=== PATIENT | female | born 1940 | race Caucasian/White ===

== ENCOUNTER 2017-11-01 15:03 | Inpatient (IN) | payer MEDICARE ==
[~2017-11-01] VITALS: Ht 162.6 cm; Wt 65.0 kg
[~2017-11-01 15:03] MED LIST: ALEN70TA39 PO; CALTTAB PO; CHOL1CAP6 PO; ENOX30P SQ; METO50TA PO; OCUVTAB PO; SYNT75TA PO; TAB-TAB PO; TIMO0.5S29 EACH EYE; TYLE3 PO
[2017-11-01] MEDS ORDERED: PIPERACIL-TAZO 4.5 GM PREMIX 100 ML IV STA (15:18)
[2017-11-01] MEDS ORDERED: SODIUM CHLOR 0.9% 1000 ML INJ 1,000 ML IV ONE (15:30)
[2017-11-01 15:49] VITALS: BP 135/94; PULSE 121; RESP 20; O2SAT 95
--- NOTE | 2017-11-01 15:50 | PD ---
HPI Chief Complaint: Altered mental status Time Seen by Provider: 15:18 Travel History International Travel<30 days: No Contact w/Intl Traveler<30days: No History of Present Illness HPI 77-year-old female retirement patient with history of dementia, presents to the ER today brought in by EMS because facility states that they think she has a UTI, she had foul-smelling urine yesterday, and today's looking more disoriented, chanting to herself, fevers of 103, and EMS found that she was in A. fib with RVR, gave her Cardizem IV with good response, now heart rate in the 100s. Patient is not able to give much further history. Modifying Factors: None Associated Signs & Symptoms: Fevers, altered mental status, tachycardia dysrhythmia Risk Factors: Dementia, elderly PFSH Past Medical History Arthritis: No Heart Rhythm Problems: No Cancer: No Cardiovascular Problems: Yes High Cholesterol: No Congestive Heart Failure: No Diabetes: No Endocrine: Yes Genitourinary: No Hiatal Hernia: Yes Hypertension: Yes Immune Disorder: No Musculoskeletal: Yes (LEFT HIP FX/B PUBIC RAMI FX 06/01/13 S/P FALL) Psychiatric: No Reproductive: No Sleep Apnea: No Thyroid Disease: Yes Past Surgical History Gynecologic Surgery: Yes (HYSTERECTOMY ) Hysterectomy: Yes Social History Alcohol Use: Yes (3X/WK) Tobacco Use: No Substance Use: No Allergies-Medications (Allergen,Severity, Reaction): Coded Allergies: No Known Allergies (Unverified , 06/01/13) Reported Meds & Prescriptions Reported Meds & Active Scripts Active Reported Ocuvite (Multiple Vitamins W/ Minerals) 1 Tab 1 Tab PO DAILY Metoprolol Tartrate 25 Mg Tab 25 Mg PO BID Levothyroxine (Levothyroxine Sodium) 75 Mcg Tab 75 Mcg PO DAILY Amlodipine (Amlodipine Besylate) 10 Mg Tab 10 Mg PO DAILY Review of Systems ROS Limitations: Altered Mental Status Physical Exam Narrative GENERAL: Well-developed elderly white female patient currently and moderate distress. Awake, alert, disoriented. SKIN: Focused skin assessment warm/dry. HEAD: Atraumatic. Normocephalic. EYES: Pupils equal and round. No scleral icterus. No injection or drainage. ENT: No nasal bleeding or discharge. Mucous membranes pink and moist. NECK: Trachea midline. No JVD. CARDIOVASCULAR: Irregularly irregular. RESPIRATORY: No accessory muscle use. Clear to auscultation. Breath sounds equal bilaterally. GASTROINTESTINAL: Abdomen soft, non-tender, nondistended. Hepatic and splenic margins not palpable. MUSCULOSKELETAL: No obvious deformities. No clubbing. No cyanosis. No edema. NEUROLOGICAL: Awake and alert. No obvious cranial nerve deficits. Motor grossly within normal limits. Normal speech. PSYCHIATRIC: Appropriate mood and affect; insight and judgment normal. Data Data Last Documented VS Vital Signs Date Time Temp Pulse Resp B/P (MAP) Pulse Ox O2 Delivery O2 Flow Rate FiO2 11/01/17 16:42 102.0 11/01/17 16:37 95 Nasal Cannula 2.00 11/01/17 15:49 121 20 135/94 (108) Orders Orders Sepsis Workup Initiated (11/01/17 ) Electrocardiogram (11/01/17 15:18) Complete Blood Count With Diff (11/01/17 15:18) Comprehensive Metabolic Panel (11/01/17 15:18) Lactic Acid Sepsis Protocol (11/01/17 15:18) Magnesium (Mg) (11/01/17 15:18) Ckmb (Isoenzyme) Profile (11/01/17 15:18) Troponin I (11/01/17 15:18) Urinalysis - C+S If Indicated (11/01/17 15:18) Blood Culture (11/01/17 15:18) Chest, Single Ap (11/01/17 15:18) Blood Glucose (11/01/17 15:18) Ecg Monitoring (11/01/17 15:18) Iv Access Insert/Monitor (11/01/17 15:18) Oximetry (11/01/17 15:18) Oxygen Administration (11/01/17 15:18) Piperacil-Tazo 4.5 Gm Premix (Zosyn 4.5 (11/01/17 15:18) Sodium Chlor 0.9% 1000 Ml Inj (Ns 1000 M (11/01/17 15:30) Ct Brain W/O Iv Contrast(Rout) (11/01/17 15:19) Acetaminophen Supp (Tylenol Supp) (11/01/17 16:45) Cath For Specimen (11/01/17 16:44) Urine Culture (11/01/17 16:12) CKMB (11/01/17 16:12) CKMB% (11/01/17 16:12) Admit Order (Ed Use Only) (11/01/17 17:47) Labs Laboratory Tests Test 11/01/17 16:12 White Blood Count 25.6 TH/MM3 Red Blood Count 4.12 MIL/MM3 Hemoglobin 12.0 GM/DL Hematocrit 36.7 % Mean Corpuscular Volume 89.0 FL Mean Corpuscular Hemoglobin 29.1 PG Mean Corpuscular Hemoglobin Concent 32.7 % Red Cell Distribution Width 15.1 % Platelet Count 179 TH/MM3 Mean Platelet Volume 10.3 FL Neutrophils (%) (Auto) 97.4 % Lymphocytes (%) (Auto) 1.0 % Monocytes (%) (Auto) 1.4 % Eosinophils (%) (Auto) 0.0 % Basophils (%) (Auto) 0.2 % Neutrophils # (Auto) 24.9 TH/MM3 Lymphocytes # (Auto) 0.3 TH/MM3 Monocytes # (Auto) 0.3 TH/MM3 Eosinophils # (Auto) 0.0 TH/MM3 Basophils # (Auto) 0.0 TH/MM3 CBC Comment AUTO DIFF Differential Total Cells Counted 100 Neutrophils % (Manual) 74 % Band Neutrophils % 21 % Lymphocytes % 1 % Monocytes % 1 % Neutrophils # (Manual) 25.1 TH/MM3 Metamyelocytes 2 % Myelocytes 1 % Differential Comment FINAL DIFF MANUAL Toxic Vacuolation PRESENT Platelet Estimate NORMAL Platelet Morphology Comment NORMAL Urine Color YELLOW Urine Turbidity HAZY Urine pH 6.0 Urine Specific [place] 1.020 Urine Protein 100 mg/dL Urine Glucose (UA) NEG mg/dL Urine Ketones 10 mg/dL Urine Occult Blood LARGE Urine Nitrite POS Urine Bilirubin NEG Urine Urobilinogen LESS THAN 2.0 MG/DL Urine Leukocyte Esterase LARGE Urine RBC 26 /hpf Urine WBC 90 /hpf Urine Squamous Epithelial Cells 1 /hpf Urine Amorphous Sediment RARE Urine Bacteria MANY /hpf Urine Mucus FEW /lpf Microscopic Urinalysis Comment CATH-CULTURE IND Blood Urea Nitrogen 27 MG/DL Creatinine 1.64 MG/DL Random Glucose 117 MG/DL Total Protein 6.9 GM/DL Albumin 3.5 GM/DL Calcium Level 8.8 MG/DL Magnesium Level 1.4 MG/DL Alkaline Phosphatase 89 U/L Aspartate Amino Transf (AST/SGOT) 40 U/L Alanine Aminotransferase (ALT/SGPT) 21 U/L Total Bilirubin 0.7 MG/DL Sodium Level 143 MEQ/L Potassium Level 3.6 MEQ/L Chloride Level 106 MEQ/L Carbon Dioxide Level 21.4 MEQ/L Anion Gap 16 MEQ/L Estimat Glomerular Filtration Rate 30 ML/MIN Lactic Acid Level 7.1 mmol/L Total Creatine Kinase 313 U/L Creatine Kinase MB 3.9 NG/ML Creatine Kinase MB % 1.2 % Troponin I 0.05 NG/ML MDM Medical Decision Making Medical Screen Exam Complete: Yes Emergency Medical Condition: Yes Medical Record Reviewed: Yes Interpretation(s) Laboratory Tests Test 11/01/17 16:12 White Blood Count 25.6 TH/MM3 (4.0-11.0) Neutrophils (%) (Auto) 97.4 % (16.0-70.0) Lymphocytes (%) (Auto) 1.0 % (9.0-44.0) Neutrophils # (Auto) 24.9 TH/MM3 (1.8-7.7) Lymphocytes # (Auto) 0.3 TH/MM3 (1.0-4.8) Neutrophils % (Manual) 74 % (16-70) Band Neutrophils % 21 % (0-6) Lymphocytes % 1 % (9-44) Neutrophils # (Manual) 25.1 TH/MM3 (1.8-7.7) Metamyelocytes 2 % (0-1) Myelocytes 1 % (0-0) Toxic Vacuolation PRESENT (NONE SEEN) Urine Turbidity HAZY (CLEAR) Urine Protein 100 mg/dL (NEG-TRACE) Urine Ketones 10 mg/dL (NEG) Urine Occult Blood LARGE (NEG) Urine Nitrite POS (NEG) Urine Leukocyte Esterase LARGE (NEG) Urine RBC 26 /hpf (0-3) Urine WBC 90 /hpf (0-5) Urine Bacteria MANY /hpf (NONE) Urine Mucus FEW /lpf (OCC) Blood Urea Nitrogen 27 MG/DL (7-18) Creatinine 1.64 MG/DL (0.50-1.00) Random Glucose 117 MG/DL (74-106) Magnesium Level 1.4 MG/DL (1.5-2.5) Aspartate Amino Transf (AST/SGOT) 40 U/L (15-37) Anion Gap 16 MEQ/L (5-15) Estimat Glomerular Filtration Rate 30 ML/MIN (>89) Lactic Acid Level 7.1 mmol/L (0.4-2.0) Total Creatine Kinase 313 U/L (26-192) Creatine Kinase MB 3.9 NG/ML (0.5-3.6) Last [address] 11/01/17 [id number] Signed Impressions: Service Date/Time: Wednesday, November 01, 2017 17:02 - CONCLUSION: 1. Diffuse cerebral atrophy. 2. Mild periventricular and subcortical white matter small vessel ischemic changes bilaterally. 3. No acute infarct, acute hemorrhage, mass effect or extra-axial fluid collections. Carlos Almonte MD Chest X-Ray 11/01/17 [id number] Signed Impressions: Service Date/Time: Wednesday, November 01, 2017 15:32 - CONCLUSION: Moderate cardiac silhouette enlargement. No other acute cardiopulmonary disease identified. Romulo Beal MD Differential Diagnosis Altered mental status, fever: Sepsis versus urosepsis versus dehydration versus metabolic issues versus intracranial injuries Narrative Course Lab work shows significant leukocytosis and UTI. IV antibiotics were initiated after cultures were drawn. Sepsis workup initiated. CT the brain did not show any signs of acute intracranial processes. Plan would be to admit the patient for further treatment. Case was discussed with Dr. Bravo for admission. Diagnosis Primary Impression: Altered mental status Additional Impressions: Sepsis UTI (urinary tract infection) Admitting Information Admitting Physician Requests: Admit Isabel Levi MD November 01, 2017 15:50
--- NOTE | 2017-11-01 16:07 | RADRPT ---
EXAM DATE/TIME: 11/01/2017 15:32 [facility] COMPARISON: No previous studies available for comparison. INDICATIONS : Fever. MEDICAL HISTORY : None. SURGICAL HISTORY : None. ENCOUNTER: Initial ACUITY: 1 day PAIN SCORE: Non-responsive. LOCATION: Bilateral chest FINDINGS: Single AP view of the chest. Patient is rotated into the SALDIVAR position. The lungs are clear. Moderate cardiac silhouette enlargement. No evidence of pleural effusion or pneumothorax. CONCLUSION: Moderate cardiac silhouette enlargement. No other acute cardiopulmonary disease i dentified. Romulo Beal MD on November 01, 2017 at 16:04 Board Certified Radiologist. This report was verified electronically.
[2017-11-01 16:42] VITALS: TEMP 102
[2017-11-01] MEDS ORDERED: ACETAMINOPHEN 325 MG SUPP RECTAL ONE (16:45)
[2017-11-01 16:46] LABS: AUTOMATED NEUTROPHIL # 24.9 TH/MM3 (1.8-7.7); BASOPHIL % 0.2 % (0.0-2.0); HEMATOCRIT 36.7 % (35.0-46.0); LYMPHOCYTE # 0.3 TH/MM3 (1.0-4.8); MEAN CORPUSCULAR HEMOGLOBIN 29.1 PG (27.0-34.0); MEAN CORPUSCULAR HGB CONC 32.7 % (32.0-36.0); MEAN PLATELET VOLUME 10.3 FL (7.0-11.0); MONO % 1.4 % (0.0-8.0); MONOCYTE # 0.3 TH/MM3 (0-0.9); NEUT % 97.4 % (16.0-70.0); PLATELET COUNT 179 TH/MM3 (150-450); RED BLOOD COUNT 4.12 MIL/MM3 (4.00-5.30); RED CELL DISTRIBUTION WIDTH 15.1 % (11.6-17.2); WHITE BLOOD COUNT 25.6 TH/MM3 (4.0-11.0)
[2017-11-01] MEDS ORDERED: METO25TA3 PO (16:46)
[2017-11-01] MEDS ORDERED: LEVO75TA3 PO (16:46)
[2017-11-01] MEDS ORDERED: AMLO10TA2 PO (16:46)
[2017-11-01] MEDS ORDERED: OCUVTAB PO (16:46)
[2017-11-01 16:52] LABS: AMORPHOUS SEDIMENT, URINE RARE; BACTERIA, URINE MANY /hpf; BILIRUBIN, URINE NEG (NEG); BLOOD, URINE LARGE (NEG); GLUCOSE,URINE NEG (NEG); KETONE, URINE 10 mg/dL (NEG); MUCUS URINE FEW /lpf (OCC); NITRITE,URINE POS (NEG); SQUAMOUS EPITHELIAL CELL URINE 1 /hpf (0-5); URINE COLOR YELLOW (YELLW/STRAW); URINE LEUKOCYTE ESTERASE LARGE (NEG)
[2017-11-01 17:01] LABS: ALBUMIN 3.5 GM/DL (3.4-5.0); AST (GOT) 40 U/L (15-37); BICARBONATE 21.4 MEQ/L (21.0-32.0); BLOOD UREA NITROGEN 27 MG/DL (7-18); CALCIUM 8.8 MG/DL (8.5-10.1); CHLORIDE 106 MEQ/L (98-107); CREATININE 1.64 MG/DL (0.50-1.00); GLOMERULAR FILTRATION RATE 30 ML/MIN (>89); GLUCOSE,RANDOM 117 MG/DL (74-106); MAGNESIUM 1.4 MG/DL (1.5-2.5); SODIUM (NA) 143 MEQ/L (136-145)
[2017-11-01 17:02] LABS: ALT (GPT) 21 U/L (10-53)
[2017-11-01 17:03] LABS: LACTIC ACID SEPSIS PROTOCOL 7.1 mmol/L (0.4-2.0)
[2017-11-01 17:06] LABS: ALKALINE PHOSPHATASE 89 U/L (45-117); TOTAL BILIRUBIN ADULT 0.7 MG/DL (0.2-1.0); TOTAL PROTEIN 6.9 GM/DL (6.4-8.2); TROPONIN I 0.05 NG/ML (0.02-0.05)
--- NOTE | 2017-11-01 17:29 | RADRPT ---
EXAM DATE/TIME: 11/01/2017 17:02 [facility] COMPARISON: CT BRAIN W/O CONTRAST, June 01, 2013, 18:10. INDICATIONS : Altered mental status. RADIATION DOSE: 56.35 CTDIvol (mGy) MEDICAL HISTORY : Cardiovascular disease. Hypertension. SURGICAL HISTORY : Hysterectomy. ENCOUNTER: Initial ACUITY: 1 day PAIN SCALE: 0/10 LOCATION: cranial TECHNIQUE: Multiple contiguous axial images were obtained of the head. Using automated exposure control and adj ustment of the mA and/or kV according to patient size, radiation dose was kept as low as reasonably a chievable to obtain optimal diagnostic quality images. DICOM format image data is available electro nically for review and comparison. FINDINGS: CEREBRUM: Diffuse cerebral atrophy is noted. Mild periventricular and subcortical white matter small vessel isc hemic changes are noted bilaterally. No evidence of midline shift, mass lesion, hemorrhage or acute i nfarction. No extra-axial fluid collections are seen. POSTERIOR FOSSA: The cerebellum and brainstem are intact. The 4th ventricle is midline. The cerebellopontine angle i s unremarkable. EXTRACRANIAL: The visualized portion of the orbits is intact. SKULL: The calvaria is intact. No evidence of skull fracture. CONCLUSION: 1. Diffuse cerebral atrophy. 2. Mild periventricular and subcortical white matter small vessel ischemic changes bilaterally. 3. No acute infarct, acute hemorrhage, mass effect or extra-axial fluid collections. Carlos Almonte MD on November 01, 2017 at 17:25 Board Certified Radiologist. This report was verified electronically.
[2017-11-01 17:31] LABS: BANDS 21 % (0-6); LYMPHOCYTES 1 % (9-44); METAMYELOCYTES 2 % (0-1); MONOCYTES 1 % (0-8); MYELOCYTES 1 % (0-0); NEUTROPHIL # MANUAL DIFF 25.1 TH/MM3 (1.8-7.7); POLYS (SEG NEUTROPHILS) 74 % (16-70)
[2017-11-01 17:32] LABS: TOXIC VACUOLATION PRESENT (NONE SEEN)
[2017-11-01 18:35] VITALS: BP 141/95; PULSE 107; RESP 16; O2SAT 95
--- NOTE | 2017-11-01 19:05 | HHI.HP ---
HPI [facility] Primary Care Physician Unknown Admission Diagnosis Sepsis/UTI/altered mental status Chief Complaint: ams Travel History International Travel<30 Days: No Contact w/Intl Traveler <30 Da: No Traveled to Known Affected Are: No History of Present Illness Pt is a 77 yo with htn, reported mild dementia, from a local senior living for foul smelling urine and more confusion. EMS reported to the staff that she is usually more oriented and active. On arrival our staff noted afib/rvr, alot of old stool near hear vaginal canal and very poor hygiene. she appeared very dry. She was confused and just mumbling . EMS gave iv cardizem per report. ABX in form of zosyn and ivf have been initiated. Rfausto placed and dark brown urine with clumps are noted. She is unable to give further hx. Review of Systems Other confusion. foul urine per NH Past Family Social History Past Medical History per records. mild dementia htn gerd avs hypothyroidism cataracts hx diverticulitis/ osteoporosis. Reported Medications Ocuvite (Multiple Vitamins W/ Minerals) 1 Tab 1 Tab PO DAILY Metoprolol Tartrate 25 Mg Tab 25 Mg PO BID Levothyroxine (Levothyroxine Sodium) 75 Mcg Tab 75 Mcg PO DAILY Amlodipine (Amlodipine Besylate) 10 Mg Tab 10 Mg PO DAILY Allergies: Coded Allergies: No Known Allergies (Unverified , 06/01/13) Family History nc Social History no etoh/tob Physical Exam Vital Signs confused mumbling mouth/lips dry heart irreg/tachy lung cta abd s/nt/bs ext no pitting frausto..brown clumped urine. Vital Signs Date Time Temp Pulse Resp B/P (MAP) Pulse Ox O2 Delivery O2 Flow Rate FiO2 11/01/17 18:35 107 16 141/95 (110) 95 Nasal Cannula 2.00 11/01/17 16:42 102.0 11/01/17 16:37 95 Nasal Cannula 2.00 11/01/17 15:49 121 20 135/94 (108) 95 Laboratory Laboratory Tests Test 11/01/17 16:12 White Blood Count 25.6 Red Blood Count 4.12 Hemoglobin 12.0 Hematocrit 36.7 Mean Corpuscular Volume 89.0 Mean Corpuscular Hemoglobin 29.1 Mean Corpuscular Hemoglobin Concent 32.7 Red Cell Distribution Width 15.1 Platelet Count 179 Mean Platelet Volume 10.3 Neutrophils (%) (Auto) 97.4 Lymphocytes (%) (Auto) 1.0 Monocytes (%) (Auto) 1.4 Eosinophils (%) (Auto) 0.0 Basophils (%) (Auto) 0.2 Neutrophils # (Auto) 24.9 Lymphocytes # (Auto) 0.3 Monocytes # (Auto) 0.3 Eosinophils # (Auto) 0.0 Basophils # (Auto) 0.0 CBC Comment AUTO DIFF Differential Total Cells Counted 100 Neutrophils % (Manual) 74 Band Neutrophils % 21 Lymphocytes % 1 Monocytes % 1 Neutrophils # (Manual) 25.1 Metamyelocytes 2 Myelocytes 1 Differential Comment FINAL DIFF MANUAL Toxic Vacuolation PRESENT Platelet Estimate NORMAL Platelet Morphology Comment NORMAL Urine Color YELLOW Urine Turbidity HAZY Urine pH 6.0 Urine Specific [place] 1.020 Urine Protein 100 Urine Glucose (UA) NEG Urine Ketones 10 Urine Occult Blood LARGE Urine Nitrite POS Urine Bilirubin NEG Urine Urobilinogen LESS THAN 2.0 Urine Leukocyte Esterase LARGE Urine RBC 26 Urine WBC 90 Urine Squamous Epithelial Cells 1 Urine Amorphous Sediment RARE Urine Bacteria MANY Urine Mucus FEW Microscopic Urinalysis Comment CATH-CULTURE IND Blood Urea Nitrogen 27 Creatinine 1.64 Random Glucose 117 Total Protein 6.9 Albumin 3.5 Calcium Level 8.8 Magnesium Level 1.4 Alkaline Phosphatase 89 Aspartate Amino Transf (AST/SGOT) 40 Alanine Aminotransferase (ALT/SGPT) 21 Total Bilirubin 0.7 Sodium Level 143 Potassium Level 3.6 Chloride Level 106 Carbon Dioxide Level 21.4 Anion Gap 16 Estimat Glomerular Filtration Rate 30 Lactic Acid Level 7.1 Total Creatine Kinase 313 Creatine Kinase MB 3.9 Creatine Kinase MB % 1.2 Troponin I 0.05 Date/Time Source Procedure Growth Status 11/01/17 16:12 Blood Peripheral Aerobic Blood Culture Pending Received 11/01/17 16:12 Blood Peripheral Anaerobic Blood Culture Pending Received 11/01/17 16:12 Urine Catheterized Urine Urine Culture Pending Received Result Diagram: 11/01/17 1612 11/01/17 1612 Caprini VTE Risk Assessment Caprini VTE Risk Assessment: Mod/High Risk (score >= 2) Caprini Risk Assessment Model Point Value = 1 Point Value = 2 Point Value = 3 Point Value = 5 Age 41-60 Minor surgery BMI > 25 kg/m2 Swollen legs Varicose veins or History of unexplained or recurrent spontaneous Oral contraceptives or hormone replacement Sepsis (< 1 month) Serious lung disease, including pneumonia (< 1 month) Abnormal pulmonary function Acute myocardial infarction Congestive heart failure (< 1 month) History of inflammatory bowel disease Medical patient at bed rest Age 61-74 Arthroscopic surgery Major open surgery (> 45 min) Laparoscopic surgery (> 45 min) Malignancy Confined to bed (> 72 hours) Immobilizing plaster cast Central venous access Age >= 75 History of VTE Family history of VTE Factor V Leiden Prothrombin [id number] Lupus anticoagulant Anticardiolipin antibodies Elevated serum homocysteine Heparin-induced thrombocytopenia Other congenital or acquired thrombophilia Stroke (< 1 month) Elective arthroplasty Hip, pelvis, or leg fracture Acute spinal cord injury (< 1 month) Prophylaxis Regimen Total Risk Factor Score Risk Level Prophylaxis Regimen 0-1 Low Early ambulation 2 Moderate Order ONE of the following: *Sequential Compression Device (SCD) *Heparin 5000 units SQ BID 3-4 Higher Order ONE of the following medications: *Heparin 5000 units SQ TID *Enoxaparin/Lovenox 40 mg SQ daily (WT < 150 kg, CrCl > 30 mL/min) *Enoxaparin/Lovenox 30 mg SQ daily (WT < 150 kg, CrCl > 10-29 mL/min) *Enoxaparin/Lovenox 30 mg SQ BID (WT < 150 kg, CrCl > 30 mL/min) AND/OR *Sequential Compression Device (SCD) 5 or more Highest Order ONE of the following medications: *Heparin 5000 units SQ TID (Preferred with Epidurals) *Enoxaparin/Lovenox 40 mg SQ daily (WT < 150 kg, CrCl > 30 mL/min) *Enoxaparin/Lovenox 30 mg SQ daily (WT < 150 kg, CrCl > 10-29 mL/min) *Enoxaparin/Lovenox 30 mg SQ BID (WT < 150 kg, CrCl > 30 mL/min) AND *Sequential Compression Device (SCD) Assessment and Plan Problem List: (1) Sepsis ICD Codes: A41.9 - Sepsis, unspecified organism Status: Acute Plan: 1. uti/sepsis 2. afib/rvr 3. jak/dehydration 4. hx mild dementia. currently with delirium from above. 5. hypothyroidism cont ivf cont iv abx. zosyn f/u urine and blood cx telemetry swallow eval. po as tolerated prn iv meds for afib/rvr if no improvement after appropriate abx and ivf resuscitation dvt prophylaxis. clarify with family code status (2) Atrial fibrillation with RVR ICD Codes: I48.91 - Unspecified atrial fibrillation Status: Acute (3) Dehydration ICD Codes: E86.0 - Dehydration Status: Acute (4) JAK (acute kidney injury) ICD Codes: N17.9 - Acute kidney failure, unspecified Status: Acute (5) UTI (urinary tract infection) ICD Codes: N39.0 - Urinary tract infection, site not specified Status: Acute (6) HTN (hypertension) ICD Codes: I10 - Essential (primary) hypertension Status: Chronic (7) Hypothyroid ICD Codes: E03.9 - Hypothyroidism, unspecified Status: Chronic Physician Certification Order for Inpatient Services The services are ordered in accordance with Medicare regulations or non- Medicare payer requirements, as applicable. In the case of services not specified as inpatient-only, they are appropriately provided as inpatient services in accordance with the 2-midnight benchmark. days is the estimated time the patient will need to remain in the hospital, assuming treatment plan goals are met and no additional complications. Israel Bravo MD November 01, 2017 19:05
[2017-11-01 19:08] VITALS: BP 124/69; PULSE 116; RESP 16; O2SAT 98
[2017-11-01] MEDS ORDERED: ENALAPRILAT 1.25 MG/ML VIAL IV PUSH PRN (19:15)
[2017-11-01] MEDS ORDERED: ACETAMINOPHEN 650 MG SUPP RECTAL PRN (19:15)
[2017-11-01] MEDS: SODIUM CHLOR 0.9% 1000 ML INJ 1,000 ML IV SCH (19:42)
[2017-11-01 22:45] VITALS: BP 98/57; PULSE 120; RESP 20; TEMP 98; O2SAT 97
[2017-11-01 22:59] VITALS: PULSE 105
[2017-11-01] MEDS: PIPERACIL-TAZO 3.375 GM PREMIX 50 ML IV SCH (23:16)
[2017-11-02] VITALS (15 sets, daily range): BP systolic 105–159; BP diastolic 69–98; PULSE 94–170; RESP 20–27; TEMP 97.6–99.2; O2SAT 96–100
[2017-11-02] MEDS: PIPERACIL-TAZO 3.375 GM PREMIX 50 ML IV SCH ×3 (06:01→21:11)
[2017-11-02] MEDS: SODIUM CHLOR 0.9% 1000 ML INJ 1,000 ML IV SCH ×3 (07:10→21:12)
--- NOTE | 2017-11-02 09:40 | HHI.PR ---
Subjective Remarks lying in bed eyes open and seems more oriented with some of her sentences making sense. Objective Vitals lying in bed no respiratory distress heart irreg lung cta abd s/nt ext no pitting. Vital Signs Date Time Temp Pulse Resp B/P (MAP) Pulse Ox O2 Delivery O2 Flow Rate FiO2 11/02/17 04:48 97.6 121 20 105/77 (86) 97 11/02/17 04:48 Nasal Cannula 2.00 11/02/17 04:00 106 11/02/17 00:08 94 11/02/17 00:00 99.2 96 20 111/69 (83) 98 11/02/17 00:00 Nasal Cannula 2.00 11/01/17 22:59 105 11/01/17 22:45 98.0 120 20 98/57 (71) 97 11/01/17 22:45 Nasal Cannula 2.00 11/01/17 19:23 119 17 96 Room Air 11/01/17 19:08 116 16 124/69 (87) 98 Nasal Cannula 2.00 11/01/17 18:35 107 16 141/95 (110) 95 Nasal Cannula 2.00 11/01/17 16:42 102.0 11/01/17 16:37 95 Nasal Cannula 2.00 11/01/17 15:49 121 20 135/94 (108) 95 Result Diagram: 11/01/17 1612 11/01/17 1612 A/P Problem List: (1) Sepsis ICD Codes: A41.9 - Sepsis, unspecified organism Status: Acute Plan: 1. uti/sepsis. 11/01 blood cx 10/01 gnr 11/01 urine cx pending. 2. afib/rvr 3. jak/dehydration 4. hx mild dementia. currently with delirium from above. 5. hypothyroidism cont ivf cont iv abx. zosyn f/u urine and blood cx telemetry swallow eval pending. start po if tolerated prn iv meds for afib/rvr if no improvement after appropriate abx and ivf resuscitation dvt prophylaxis. ADDENDUM: PT MOVED TO ICU AFTER HALICAT AND AFIB HR'S UP TO 200 IV LOPRESSOR NOT WORKING. HR DROPS TO 130S THE BACK UP SHE IS SPITTING OUT ORAL [facility] OF IV CARDIZEM AND SO UNABLE TO START THE USUAL PROTOCOL. SPOKE WITH REMEDY DEVELOPER . WILL TRY IV DIGOXIN AND INITIATE AMIO PROTOCOL. I WILL GIVE SCHEDULED LOVENOX TO AVOID THROMBOEMBOLIC EVENTS. SISTER CALLED TO ICU NURSING AND TRYING TO CLARIFY CODE STATUS. WILL HAVE REMEDY DEVELOPER BE AWARE IN CASE SHE DETERIORATES FURTHER. (2) Atrial fibrillation with RVR ICD Codes: I48.91 - Unspecified atrial fibrillation Status: Acute (3) Dehydration ICD Codes: E86.0 - Dehydration Status: Acute (4) JAK (acute kidney injury) ICD Codes: N17.9 - Acute kidney failure, unspecified Status: Acute (5) UTI (urinary tract infection) ICD Codes: N39.0 - Urinary tract infection, site not specified Status: Acute (6) HTN (hypertension) ICD Codes: I10 - Essential (primary) hypertension Status: Chronic (7) Hypothyroid ICD Codes: E03.9 - Hypothyroidism, unspecified Status: Chronic Israel Bravo MD November 02, 2017 09:40
[2017-11-02 10:46] LABS: BASOPHIL # 0.1 TH/MM3 (0-0.2); BASOPHIL % 0.2 % (0.0-2.0); EOSINOPHIL % 0.1 % (0.0-4.0); HEMATOCRIT 36.6 % (35.0-46.0); HEMOGLOBIN 12.1 GM/DL (11.6-15.3); LYMPH % 3.2 % (9.0-44.0); LYMPHOCYTE # 0.8 TH/MM3 (1.0-4.8); MEAN CELL VOLUME 89.4 FL (80.0-100.0); MEAN CORPUSCULAR HEMOGLOBIN 29.4 PG (27.0-34.0); MEAN CORPUSCULAR HGB CONC 32.9 % (32.0-36.0); MEAN PLATELET VOLUME 10.2 FL (7.0-11.0); MONO % 2.8 % (0.0-8.0); MONOCYTE # 0.7 TH/MM3 (0-0.9); NEUT % 93.7 % (16.0-70.0); PLATELET COUNT 115 TH/MM3 (150-450); RED CELL DISTRIBUTION WIDTH 15.5 % (11.6-17.2); WHITE BLOOD COUNT 24.6 TH/MM3 (4.0-11.0)
[2017-11-02 11:01] LABS: BICARBONATE 22.9 MEQ/L (21.0-32.0); CALCIUM 8.2 MG/DL (8.5-10.1); CREATININE 1.14 MG/DL (0.50-1.00)
[2017-11-02] MEDS ORDERED: METOPROLOL TARTRATE 25 MG TAB PO ONE (11:15)
[2017-11-02] MEDS ORDERED: METOPROLOL TARTRATE 5 MG/5 ML VIAL IV PUSH STA (12:41)
[2017-11-02] MEDS ORDERED: METOPROLOL TARTRATE 5 MG/5 ML VIAL IV PUSH PRN (12:45)
--- NOTE | 2017-11-02 13:43 | EKG ---
Date Performed: 11/01/2017 Time Performed: 16:48:01 PTAGE: 77 years EKG: ATRIAL FIBRILLATION WITH RAPID VENTRICULAR RESPONSE WITH ABERRANT CONDUCTION OR VENTRICULAR PREMATURE COMPLEXES BORDERLINE RIGHT AXIS DEVIATION NONSPECIFIC ST & T-WAVE ABNORMALITY ABNORMAL RHY THM ECG PREVIOUS TRACING : 06/02/2013 07.02 Since prior tracing, atrial fibrillation with rapid ventric ular response has replaced Sinus rhythm . DOCTOR: Kurt Chung Interpretating Date/Time 11/02/2017 13:42:04
[2017-11-02] MEDS ORDERED: METOPROLOL TARTRATE 25 MG TAB PO SCH ×2 (14:00→21:00)
[2017-11-02] MEDS ORDERED: DILTIAZEM HCL 30 MG TAB PO STA (14:17)
[2017-11-02] MEDS ORDERED: cefTRIAXone INJ 1,000 MG in SODIUM CHLORIDE 0.9% INJ 100 ML IV ONE (15:00)
[2017-11-02] MEDS ORDERED: CHLORHEXIDINE GLUCONATE 2 % 1 PACK (2 CLOTHS)(extra cloths) TOPICAL PRN (15:45)
[2017-11-02] MEDS: METOPROLOL TARTRATE 5 MG/5 ML VIAL IV PUSH PRN (15:47)
[2017-11-02] MEDS ORDERED: DIGOXIN 0.5 MG/2 ML VIAL IV PUSH ONE (16:00)
[2017-11-02] MEDS ORDERED: AMIODARONE INJ 150 MG in DEXTROSE 5% IN WATER 100ML INJ 97 ML IV ONE ×2 (16:03)
[2017-11-02] MEDS ORDERED: AMIODARONE INJ 450 MG in DEXTROSE 5% IN WATE(EXCEL) INJ 241 ML IV PRN ×2 (16:13)
[2017-11-02] MEDS: AMIODARONE INJ 450 MG in SODIUM CHLOR 0.9% (EXCEL) INJ 241 ML IV PRN ×2 (16:34→22:57)
[2017-11-02] MEDS: MAGNESIUM SULFATE 1 GM PREMIX 100 ML IV SCH ×2 (16:50→17:58)
[2017-11-02] MEDS: ENOXAPARIN SODIUM 80 MG/0.8 ML SYRINGE SQ SCH (16:50)
[2017-11-02] MEDS ORDERED: DILTIAZEM HCL 30 MG TAB PO SCH (18:00)
[2017-11-03] VITALS (16 sets, daily range): BP systolic 133–154; BP diastolic 68–96; PULSE 84–109; RESP 16–25; TEMP 98.4–98.9; O2SAT 96–99
[2017-11-03] MEDS: CHLORHEXIDINE GLUCONATE 2 % 1 PACK (2 CLOTHS)(taper/protocol) TOPICAL SCH (04:00)
[2017-11-03] MEDS: ENOXAPARIN SODIUM 80 MG/0.8 ML SYRINGE SQ SCH ×2 (05:40→16:15)
[2017-11-03] MEDS: PIPERACIL-TAZO 3.375 GM PREMIX 50 ML IV SCH ×3 (05:40→21:59)
[2017-11-03] MEDS: SODIUM CHLOR 0.9% 1000 ML INJ 1,000 ML IV SCH ×3 (07:30→21:59)
[2017-11-03 09:31] LABS: HEMATOCRIT 41.8 % (35.0-46.0); HEMOGLOBIN 13.9 GM/DL (11.6-15.3); MEAN CELL VOLUME 88.1 FL (80.0-100.0); MEAN CORPUSCULAR HEMOGLOBIN 29.2 PG (27.0-34.0); MEAN CORPUSCULAR HGB CONC 33.1 % (32.0-36.0); MEAN PLATELET VOLUME 11.1 FL (7.0-11.0); PLATELET COUNT 127 TH/MM3 (150-450); RED BLOOD COUNT 4.75 MIL/MM3 (4.00-5.30); RED CELL DISTRIBUTION WIDTH 15.4 % (11.6-17.2); WHITE BLOOD COUNT 23.5 TH/MM3 (4.0-11.0)
[2017-11-03 09:37] LABS: BICARBONATE 21.7 MEQ/L (21.0-32.0); CREATININE 0.95 MG/DL (0.50-1.00)
[2017-11-03 10:04] LABS: BANDS 25 % (0-6); LYMPHOCYTES 4 % (9-44); METAMYELOCYTES 1 % (0-1); NEUTROPHIL # MANUAL DIFF 22.6 TH/MM3 (1.8-7.7); POLYS (SEG NEUTROPHILS) 70 % (16-70); TOXIC VACUOLATION PRESENT (NONE SEEN)
--- NOTE | 2017-11-03 10:44 | EKG ---
Date Performed: 11/02/2017 Time Performed: 12:55:32 PTAGE: 77 years EKG: Atrial fibrillation with uncontrolled ventricular response. Anterolateral T wave changes ar e nonspecific Low QRS voltages in limb leads Abnormal ECG Since the PREVIOUS TRACING , no significant change noted PREVIOUS TRACING DOCTOR: Jean Taylor Interpretating Date/Time 11/03/2017 10:41:52
--- NOTE | 2017-11-03 10:44 | EKG ---
Date Performed: 11/02/2017 Time Performed: 16:02:34 PTAGE: 77 years EKG: Atrial fibrillation with rapid ventricular response. ST junctional depression is nonspecifi c Abnormal ECG Since the PREVIOUS TRACING , no significant change noted PREVIOUS TRACIN11/02/2017 12.55 DOCTOR: Jean Taylor Interpretating Date/Time 11/03/2017 10:41:40
[2017-11-03] MEDS: METOPROLOL TARTRATE 5 MG/5 ML VIAL IV PUSH PRN (13:23)
[2017-11-03] MEDS: AMIODARONE INJ 450 MG in SODIUM CHLOR 0.9% (EXCEL) INJ 241 ML IV PRN (13:46)
--- NOTE | 2017-11-03 17:51 | HHI.PR ---
Subjective Remarks No new complaints. Objective Vitals Vital Signs Date Time Temp Pulse Resp B/P (MAP) Pulse Ox O2 Delivery O2 Flow Rate FiO2 11/03/17 16:00 88 11/03/17 16:00 98.8 85 22 139/68 (91) 97 11/03/17 14:00 88 11/03/17 13:46 97 147/83 11/03/17 12:00 98.4 109 22 154/81 (105) 97 11/03/17 12:00 88 11/03/17 10:00 88 11/03/17 08:03 88 11/03/17 08:03 98.4 93 22 141/80 (100) 97 11/03/17 07:48 96 Nasal Cannula 4.00 11/03/17 07:00 99 Nasal Cannula 5.00 11/03/17 06:00 96 11/03/17 04:00 98.9 90 22 133/95 (108) 99 11/03/17 04:00 90 11/03/17 02:00 94 11/03/17 00:00 99 11/03/17 00:00 98.8 99 25 135/85 (102) 96 11/02/17 22:57 109 142/69 11/02/17 22:00 112 11/02/17 20:00 99.0 102 24 139/98 (112) 96 11/02/17 20:00 102 11/02/17 20:00 99.0 102 24 139/98 (112) 96 11/02/17 19:00 99 Nasal Cannula 5.00 11/02/17 18:00 101 11/03/17 11/03/17 11/04/17 14:59 22:59 06:59 Intake Total 1000 ml Balance 1000 ml IV Total 1000 ml Result Diagram: 11/03/17 0840 11/03/17 0840 Imaging Last Impressions Head CT 11/01/17 1519 Signed Impressions: Service Date/Time: Wednesday, November 01, 2017 17:02 - CONCLUSION: 1. Diffuse cerebral atrophy. 2. Mild periventricular and subcortical white matter small vessel ischemic changes bilaterally. 3. No acute infarct, acute hemorrhage, mass effect or extra-axial fluid collections. Carlos Almonte MD Chest X-Ray 11/01/17 1516 Signed Impressions: Service Date/Time: Wednesday, November 01, 2017 15:32 - CONCLUSION: Moderate cardiac silhouette enlargement. No other acute cardiopulmonary disease identified. Romulo Beal MD Objective Remarks GENERAL: This is a well-nourished, well-developed patient, in no apparent distress. CARDIOVASCULAR: Regular rate and rhythm without murmurs, gallops, or rubs. RESPIRATORY: Clear to auscultation. Breath sounds equal bilaterally. No wheezes , rales, or rhonchi. GASTROINTESTINAL: Abdomen soft, non-tender, nondistended. Normal active bowel sounds MUSCULOSKELETAL: Extremities without clubbing, cyanosis, or edema. NEURO: Alert & Oriented x1. Moves all ext x4 A/P Problem List: (1) Sepsis ICD Codes: A41.9 - Sepsis, unspecified organism Status: Acute Plan: - blood culture (10/31) 10/01 bottles E. Coli - IVF - zosyn - poor PO intake - appreciate input from ST - DVT prophylaxis - supportive care (2) UTI (urinary tract infection) ICD Codes: N39.0 - Urinary tract infection, site not specified Status: Acute Plan: - urine Cx (11/02) --> gram negative kaylene - zosyn (3) Atrial fibrillation with RVR ICD Codes: I48.91 - Unspecified atrial fibrillation Status: Chronic Plan: - IV amiodarone - prn IV metoprolol - observe on telemetry - will likely transition to PO metoprolol 11/04/17 (4) JAK (acute kidney injury) ICD Codes: N17.9 - Acute kidney failure, unspecified Status: Acute Plan: - improved from admission - IVFs - repeat labs in AM (5) HTN (hypertension) ICD Codes: I10 - Essential (primary) hypertension Status: Chronic (6) Hypothyroid ICD Codes: E03.9 - Hypothyroidism, unspecified Status: Chronic Problem Qualifiers (1) UTI (urinary tract infection): Qualified Codes: N30.00 - Acute cystitis without hematuria (2) HTN (hypertension): Qualified Codes: I10 - Essential (primary) hypertension (3) Hypothyroid: Qualified Codes: E03.9 - Hypothyroidism, unspecified Sea Dwyer DO November 03, 2017 17:50
[2017-11-03] MEDS: METOPROLOL TARTRATE 25 MG TAB PO SCH (21:59)
[2017-11-04] VITALS (25 sets, daily range): BP systolic 133–158; BP diastolic 44–95; PULSE 81–136; RESP 16–18; TEMP 97.6–98.6; O2SAT 97–99
[2017-11-04] MEDS: CHLORHEXIDINE GLUCONATE 2 % 1 PACK (2 CLOTHS)(taper/protocol) TOPICAL SCH (04:00)
[2017-11-04] MEDS: ENOXAPARIN SODIUM 80 MG/0.8 ML SYRINGE SQ SCH ×2 (04:18→15:23)
[2017-11-04] MEDS: AMIODARONE INJ 450 MG in SODIUM CHLOR 0.9% (EXCEL) INJ 241 ML IV PRN (05:30)
[2017-11-04] MEDS: LEVOTHYROXINE SODIUM 75 MCG TAB PO SCH (05:52)
[2017-11-04] MEDS: PIPERACIL-TAZO 3.375 GM PREMIX 50 ML IV SCH ×3 (05:52→21:57)
[2017-11-04 07:03] LABS: AUTOMATED NEUTROPHIL # 15.6 TH/MM3 (1.8-7.7); BASOPHIL % 0.2 % (0.0-2.0); EOSINOPHIL % 0.1 % (0.0-4.0); HEMATOCRIT 37.2 % (35.0-46.0); HEMOGLOBIN 12.4 GM/DL (11.6-15.3); LYMPH % 4.4 % (9.0-44.0); LYMPHOCYTE # 0.8 TH/MM3 (1.0-4.8); MEAN CELL VOLUME 87.7 FL (80.0-100.0); MEAN CORPUSCULAR HEMOGLOBIN 29.2 PG (27.0-34.0); MEAN CORPUSCULAR HGB CONC 33.2 % (32.0-36.0); MEAN PLATELET VOLUME 10.2 FL (7.0-11.0); MONO % 3.5 % (0.0-8.0); MONOCYTE # 0.6 TH/MM3 (0-0.9); NEUT % 91.8 % (16.0-70.0); PLATELET COUNT 135 TH/MM3 (150-450); RED BLOOD COUNT 4.24 MIL/MM3 (4.00-5.30)
[2017-11-04 07:16] LABS: BICARBONATE 24.8 MEQ/L (21.0-32.0); CREATININE 0.82 MG/DL (0.50-1.00); MAGNESIUM 1.8 MG/DL (1.5-2.5)
[2017-11-04] MEDS: METOPROLOL TARTRATE 25 MG TAB PO SCH ×2 (08:12→20:59)
[2017-11-04] MEDS: POTASSIUM CHLORIDE 20 MEQ CONTROLLED RELEASE TAB PO SCH ×2 (10:10→13:54)
[2017-11-04] MEDS: SODIUM CHLOR 0.9% 1000 ML INJ 1,000 ML IV SCH ×2 (11:00→20:59)
--- NOTE | 2017-11-04 15:23 | PD.CONS ---
Consult Service Palliative Care . Consult Requested By Dr. Dwyer . Primary Care Physician Unknown . Reason for Consultation a. To assist with evaluation and management of symptoms including: Confusion , weakness, decreased appetite. b. To assist medical decision maker(s) with: better understanding of current medical conditions; weighing benefits/burdens of medical treatment options; making medical treatment decisions. . HPI History of Present Illness Mrs. Hightower is a 77-year-old female with past medical history of mild dementia, hypertension, GERD, hypothyroidism, osteoporosis. Patient presented to [facility] emergency department on 11/01/17 from [facility] where she has been a resident for the past 3 years with foul-smelling urine and increased confusion. Upon EMS arrival patient was found in atrial fibrillation with RVR given IV Cardizem. Notes also indicate the patient had very poor hygiene, a lot of old stool near the vaginal canal, skin was dry. Patient was confused and mumbling. She was started on antibiotics and IV fluids. Parker catheter was placed found to have dark brown urine with clumps of sediment. Initial emergency room evaluation revealed: * VS: Temp 102, pulse 121, respiration 20, BP 135/94, oxygen saturation 95% on 2 L nasal cannula * WBC 25.6, hemoglobin 12, hematocrit 36.7, platelets 179, neutrophil 97.4% * Urinalysis positive occult blood, nitrate, leukocyte esterase, RBC and WBC, bacteria and mucus, culture indicated. Later resulted E. coli, multidrug resistant. * BUN 27, creatinine 1.64, glucose 117, calcium 8.8, magnesium 1.4, sodium 143, potassium 3.6, GFR 30 * Total bilirubin 0.7, alkaline phosphatase 89, AST 40, ALT 21 * Total protein 6.9, albumin 3.5 * Lactic acid 7.1 * Total creatine kinase 313, CKMB 3.9, CKMB percent 1.2, troponin 0 0.05 * Blood cultures -later resulted E. coli with multiple drug-resistant * Chest x-ray -moderate cardiac silhouette enlargement, no other acute cardiopulmonary disease identified. * CT head-diffuse cerebral atrophy, mild periventricular and subcortical white matter small vessel ischemic changes bilaterally, no acute infarct, acute hemorrhage, mass-effect or extra-axial fluid collections noted. Patient was admitted with altered mental status, sepsis, UTI. Patient remains afebrile. WBC remains elevated 17. She has had poor oral intake. Speech evaluation recommended pureed diet with thin liquids. Palliative care was consulted to assist with further clarification of medical treatment goals. Met with patient at bedside. She is confused, unable to answer questions appropriately. She does not follow commands for me. She is oriented to person only. She denies pain. She does not appear painful. ACADEMIC SUPPORT COORDINATOR indicates she ate very little, bites for lunch. . Function/Cognitive Trajectory Patient has been a resident of [facility] for the past 3 years. She reportedly walks and feeds herself. Eats small amounts. She is confused, does not know her family, needs assistance with showering and dressing. . Review of Systems Constitutional: COMPLAINS OF: Fatigue, Fever (on day of admission), Change in appetite (decrased), Generalized weakness Endocrine: DENIES: Abnorml menstrual pattern, Heat/cold intolerance, Polydipsia , Polyuria, Polyphagia Eyes: COMPLAINS OF: Blurred vision Respiratory: COMPLAINS OF: Shortness of breath Cardiovascular: COMPLAINS OF: Dyspnea on Exertion Gastrointestinal: COMPLAINS OF: Difficulty Swallowing (on pureed diet), DENIES : Abdominal pain, Black stools, Bloody stools, Constipation, Diarrhea, Nausea, Vomiting, Anorexia, Dyspepsia or heartburn, Excessive gas, Bloating, Vomiting blood Integumentary: DENIES: Abnormal pigmentation, Pruritus, Rash, Nail changes, Breast masses, Breast skin changes, Nipple discharge, Nodules, Tumors, Excessive dryness, Non-healing sores Hematologic/Lymphatics: COMPLAINS OF: Bruising Immunologic/Allergic: DENIES: Eczema, Urticaria Neurologic: COMPLAINS OF: Poor Balance (ambulates with walker prior to admission) Psychiatric: COMPLAINS OF: Confusion (dementia) Past Family Social History Coded Allergies: No Known Allergies (Unverified , 06/01/13) Past Medical History Mild dementia Hypertension GERD Hypothyroidism Hiatal hernia Osteoporosis . Past Surgical History Open reduction, internal fixation of the left hip (06/03/13) Hysterectomy Cardiac catheterization normal coronary arteries, normal left ventricular size and function (2002) . Reported Medications Reported Meds & Active Scripts Active Reported Ocuvite (Multiple Vitamins W/ Minerals) 1 Tab 1 Tab PO DAILY Metoprolol Tartrate 25 Mg Tab 25 Mg PO BID Levothyroxine (Levothyroxine Sodium) 75 Mcg Tab 75 Mcg PO DAILY Amlodipine (Amlodipine Besylate) 10 Mg Tab 10 Mg PO DAILY . Current Medications Medications (Trade) Dose Ordered Sig/Kallie Route Start Time Stop Time Status Last Admin Piperacillin Sod/ Tazobactam Sod 50 ml @ 100 mls/hr Q8H IV 11/01/17 22:00 11/04/17 13:54 (Vasotec Inj) 1.25 mg Q6H PRN IV PUSH 11/01/17 19:15 (Tylenol Supp) 650 mg Q6H PRN RECTAL 11/01/17 19:15 Sodium Chloride 1,000 ml @ 100 mls/hr Q10H IV 11/02/17 11:30 11/04/17 11:00 (Lopressor Inj) 5 mg Q5M PRN IV PUSH 11/02/17 14:30 11/03/17 13:23 ([facility] Nursing Information) Patient in critical care unit? Ass... [id number] .XX 11/02/17 15:45 11/02/17 15:45 (Chlorhexidine 2% Cloth) 3 pack DAILY@04 TOPICAL 11/03/17 04:00 11/07/17 04:01 11/03/17 04:00 (Chlorhexidine 2% Cloth) 3 pack UNSCH PRN TOPICAL 11/02/17 15:45 11/07/17 15:34 (Lovenox Inj) 70 mg Q12H SQ 11/02/17 16:15 11/04/17 04:18 Amiodarone HCl 450 mg/Sodium Chloride 250 ml @ 33.33 mls/ hr Q7H31M PRN IV 11/02/17 16:15 11/04/17 05:30 (Synthroid) 75 mcg DAILY@0600 PO 11/04/17 06:00 11/04/17 05:52 (Lopressor) 25 mg BID PO 11/03/17 21:00 11/04/17 08:12 Family History Parents . Sons alive and well. Substance Use Tobacco: former smoke, none recent. Alcohol: none recent. Prescription med abuse: none. Illicits: none. . Psychosocial History . Has 3 sons, Sergio Bowser (in [place]), Akhil Koch (in [place]) and Jad Bowser ( in [place]). Retired. Has been a resident of [facility] for about 3 years , after her . Has a local sister, Parul Yeboah. . Spiritual/Cultural Factors Yarsanism is not an important part of her life. Family declines cpr instructor support at this time. . Health Care Surrogate(s): DURABLE POWER OF OUTSIDE SALES EXECUTIVE does not include healthcare decision making though nominates her son Sergio Bowser as primary POA, Akhil Ambrocio as first alternate and Jad Bowser as second alternative. Family is searching for designation of healthcare surrogate paperwork that reportedly names the same decision making higher. . Documented care wishes: Living will dated 07/26/14 indicates that if her attending physician indicates she is in a persistent vegetative state or has an end-stage condition defined as an irreversible condition that caused injury, disease or illness which has resulted in progressively severe or permanent deterioration and that the medical probability of treatment would be ineffective that she would want life prolonging measures to be withheld or withdrawn and that she would be provided comfort care. Patient also completed a state of [place] DO NOT RESUSCITATE order 11/16/14 indicating that she directs that CPR be withheld or withdrawn. . Today's verbally stated goals: Patient is not capacitated to make her own healthcare decisions, will not regain capacity given underlying dementia. . Family/friends goals: Desires continued aggressive care short of NO CODE at this time. Open to consideration of hospice if her condition continues to decline. . Ethical and Legal Issues Decision Maker: Patient is not capacitated to make her own healthcare decisions , will not regain capacity given underlying dementia. Has written advanced directives, living will, DPOA (does not include healthcare decisions) and [place] DNR. Son, Sergio Bowser indicates he believes he is the designated healthcare surrogate, is looking for documentation. According to [place] statutes, in the absence of written designation of healthcare surrogate, healthcare proxy decision making would fall to her 3 sons. Physical Exam Vital Signs Date Time Temp Pulse Resp B/P (MAP) Pulse Ox O2 Delivery O2 Flow Rate FiO2 11/04/17 12:00 95 11/04/17 12:00 98.1 90 16 143/44 (77) 97 11/04/17 11:00 96 11/04/17 10:00 90 11/04/17 09:00 84 11/04/17 08:00 98.3 101 16 145/80 (101) 97 11/04/17 08:00 88 11/04/17 07:30 Nasal Cannula 2.00 11/04/17 07:00 96 11/04/17 06:00 102 11/04/17 05:30 90 152/95 11/04/17 05:00 92 11/04/17 04:36 Nasal Cannula 2.00 11/04/17 04:00 89 11/04/17 03:30 98.2 89 16 152/95 (114) 98 11/04/17 03:00 83 11/04/17 02:00 90 11/04/17 01:00 83 11/04/17 00:00 92 11/04/17 00:00 97.6 92 16 139/94 (109) 97 11/03/17 23:00 84 11/03/17 22:00 90 11/03/17 21:00 100 11/03/17 20:00 98 Nasal Cannula 2.00 11/03/17 20:00 98.4 100 16 137/96 (110) 98 11/03/17 20:00 94 11/03/17 19:00 92 11/03/17 18:00 88 11/03/17 16:00 88 11/03/17 16:00 98.8 85 22 139/68 (91) 97 Exam CONSTITUTIONAL/GENERAL: This is an adequately nourished, confused patient, in no apparent distress. TUBES/LINES/DRAINS: Oxygen via nasal cannula, PIV left hand, PIV right forearm, bilateral soft wrist restraints, Parker catheter. SKIN: No jaundice, rashes, or lesions. Ecchymoses on upper extremities. No wounds seen anteriorly. Skin temperature appropriate. Not diaphoretic. HEAD: Atraumatic. Normocephalic. EYES: Pupils equal and round and reactive. ENT: Hearing appears grossly normal. Nose without bleeding or purulent drainage. NECK: Trachea midline. CARDIOVASCULAR: Irregularly irregular. No murmurs. RESPIRATORY/CHEST: Symmetric, unlabored respirations. Clear to auscultation. GASTROINTESTINAL: Abdomen soft, non-tender, nondistended. Bowel sounds present. GENITOURINARY: Without palpable bladder distension. Parker catheter in place. MUSCULOSKELETAL: Extremities without clubbing, cyanosis, or edema. No mottling or clubbing. LYMPHATICS: No palpable cervical or supraclavicular adenopathy. NEUROLOGICAL: Awake and alert. Oriented to self only. PSYCHIATRIC: No obvious anxiety/depression. no apparent hallucinations or other psychotic thought process. . Diagnostic Tests Laboratory Laboratory Tests Test 11/01/17 16:12 11/01/17 19:01 11/02/17 10:20 11/02/17 14:30 White Blood Count 25.6 TH/MM3 (4.0-11.0) 24.6 TH/MM3 (4.0-11.0) Red Blood Count 4.12 MIL/MM3 (4.00-5.30) 4.10 MIL/MM3 (4.00-5.30) Hemoglobin 12.0 GM/DL (11.6-15.3) 12.1 GM/DL (11.6-15.3) Hematocrit 36.7 % (35.0-46.0) 36.6 % (35.0-46.0) Mean Corpuscular Volume 89.0 FL (80.0-100.0) 89.4 FL (80.0-100.0) Mean Corpuscular Hemoglobin 29.1 PG (27.0-34.0) 29.4 PG (27.0-34.0) Mean Corpuscular Hemoglobin Concent 32.7 % (32.0-36.0) 32.9 % (32.0-36.0) Red Cell Distribution Width 15.1 % (11.6-17.2) 15.5 % (11.6-17.2) Platelet Count 179 TH/MM3 (150-450) 115 TH/MM3 (150-450) Mean Platelet Volume 10.3 FL (7.0-11.0) 10.2 FL (7.0-11.0) Neutrophils (%) (Auto) 97.4 % (16.0-70.0) 93.7 % (16.0-70.0) Lymphocytes (%) (Auto) 1.0 % (9.0-44.0) 3.2 % (9.0-44.0) Monocytes (%) (Auto) 1.4 % (0.0-8.0) 2.8 % (0.0-8.0) Eosinophils (%) (Auto) 0.0 % (0.0-4.0) 0.1 % (0.0-4.0) Basophils (%) (Auto) 0.2 % (0.0-2.0) 0.2 % (0.0-2.0) Neutrophils # (Auto) 24.9 TH/MM3 (1.8-7.7) 23.0 TH/MM3 (1.8-7.7) Lymphocytes # (Auto) 0.3 TH/MM3 (1.0-4.8) 0.8 TH/MM3 (1.0-4.8) Monocytes # (Auto) 0.3 TH/MM3 (0-0.9) 0.7 TH/MM3 (0-0.9) Eosinophils # (Auto) 0.0 TH/MM3 (0-0.4) 0.0 TH/MM3 (0-0.4) Basophils # (Auto) 0.0 TH/MM3 (0-0.2) 0.1 TH/MM3 (0-0.2) CBC Comment AUTO DIFF DIFF FINAL Differential Total Cells Counted 100 Neutrophils % (Manual) 74 % (16-70) Band Neutrophils % 21 % (0-6) Lymphocytes % 1 % (9-44) Monocytes % 1 % (0-8) Neutrophils # (Manual) 25.1 TH/MM3 (1.8-7.7) Metamyelocytes 2 % (0-1) Myelocytes 1 % (0-0) Differential Comment FINAL DIFF MANUAL Toxic Vacuolation PRESENT (NONE SEEN) Platelet Estimate NORMAL (NORMAL) Platelet Morphology Comment NORMAL (NORMAL) Urine Color YELLOW (YELLW/STRAW) Urine Turbidity HAZY (CLEAR) Urine pH 6.0 (5.0-8.5) Urine Specific [place] 1.020 (1.002-1.035) Urine Protein 100 mg/dL (NEG-TRACE) Urine Glucose (UA) NEG mg/dL (NEG) Urine Ketones 10 mg/dL (NEG) Urine Occult Blood LARGE (NEG) Urine Nitrite POS (NEG) Urine Bilirubin NEG (NEG) Urine Urobilinogen LESS THAN 2.0 MG/DL (LESS Urine Leukocyte Esterase LARGE (NEG) Urine RBC 26 /hpf (0-3) Urine WBC 90 /hpf (0-5) Urine Squamous Epithelial Cells 1 /hpf (0-5) Urine Amorphous Sediment RARE Urine Bacteria MANY /hpf (NONE) Urine Mucus FEW /lpf (OCC) Microscopic Urinalysis Comment CATH-CULTURE IND Blood Urea Nitrogen 27 MG/DL (7-18) 30 MG/DL (7-18) Creatinine 1.64 MG/DL (0.50-1.00) 1.14 MG/DL (0.50-1.00) Random Glucose 117 MG/DL (74-106) 96 MG/DL (74-106) Total Protein 6.9 GM/DL (6.4-8.2) Albumin 3.5 GM/DL (3.4-5.0) Calcium Level 8.8 MG/DL (8.5-10.1) 8.2 MG/DL (8.5-10.1) Magnesium Level 1.4 MG/DL (1.5-2.5) Alkaline Phosphatase 89 U/L (45-117) Aspartate Amino Transf (AST/SGOT) 40 U/L (15-37) Alanine Aminotransferase (ALT/SGPT) 21 U/L (10-53) Total Bilirubin 0.7 MG/DL (0.2-1.0) Sodium Level 143 MEQ/L (136-145) 145 MEQ/L (136-145) Potassium Level 3.6 MEQ/L (3.5-5.1) 3.6 MEQ/L (3.5-5.1) Chloride Level 106 MEQ/L (98-107) 110 MEQ/L (98-107) Carbon Dioxide Level 21.4 MEQ/L (21.0-32.0) 22.9 MEQ/L (21.0-32.0) Anion Gap 16 MEQ/L (5-15) 12 MEQ/L (5-15) Estimat Glomerular Filtration Rate 30 ML/MIN (>89) 46 ML/MIN (>89) Lactic Acid Level 7.1 mmol/L (0.4-2.0) 6.7 mmol/L (0.4-2.0) Total Creatine Kinase 313 U/L (26-192) Creatine Kinase MB 3.9 NG/ML (0.5-3.6) Creatine Kinase MB % 1.2 % (0.0-4.0) Troponin I 0.05 NG/ML (0.02-0.05) Nasal Screen MRSA (PCR) MRSA NOT DETECTED (NOT Test 11/03/17 08:40 11/04/17 06:09 White Blood Count 23.5 TH/MM3 (4.0-11.0) 17.0 TH/MM3 (4.0-11.0) Red Blood Count 4.75 MIL/MM3 (4.00-5.30) 4.24 MIL/MM3 (4.00-5.30) Hemoglobin 13.9 GM/DL (11.6-15.3) 12.4 GM/DL (11.6-15.3) Hematocrit 41.8 % (35.0-46.0) 37.2 % (35.0-46.0) Mean Corpuscular Volume 88.1 FL (80.0-100.0) 87.7 FL (80.0-100.0) Mean Corpuscular Hemoglobin 29.2 PG (27.0-34.0) 29.2 PG (27.0-34.0) Mean Corpuscular Hemoglobin Concent 33.1 % (32.0-36.0) 33.2 % (32.0-36.0) Red Cell Distribution Width 15.4 % (11.6-17.2) 15.0 % (11.6-17.2) Platelet Count 127 TH/MM3 (150-450) 135 TH/MM3 (150-450) Mean Platelet Volume 11.1 FL (7.0-11.0) 10.2 FL (7.0-11.0) CBC Comment AUTO DIFF DIFF FINAL Differential Total Cells Counted 100 Neutrophils % (Manual) 70 % (16-70) Band Neutrophils % 25 % (0-6) Lymphocytes % 4 % (9-44) Neutrophils # (Manual) 22.6 TH/MM3 (1.8-7.7) Metamyelocytes 1 % (0-1) Differential Comment FINAL DIFF MANUAL Toxic Vacuolation PRESENT (NONE SEEN) Platelet Estimate LOW (NORMAL) Platelet Morphology Comment NORMAL (NORMAL) Blood Urea Nitrogen 20 MG/DL (7-18) 17 MG/DL (7-18) Creatinine 0.95 MG/DL (0.50-1.00) 0.82 MG/DL (0.50-1.00) Random Glucose 110 MG/DL (74-106) 98 MG/DL (74-106) Calcium Level 8.0 MG/DL (8.5-10.1) 8.0 MG/DL (8.5-10.1) Sodium Level 141 MEQ/L (136-145) 142 MEQ/L (136-145) Potassium Level 3.5 MEQ/L (3.5-5.1) 2.8 MEQ/L (3.5-5.1) Chloride Level 108 MEQ/L (98-107) 107 MEQ/L (98-107) Carbon Dioxide Level 21.7 MEQ/L (21.0-32.0) 24.8 MEQ/L (21.0-32.0) Anion Gap 11 MEQ/L (5-15) 10 MEQ/L (5-15) Estimat Glomerular Filtration Rate 57 ML/MIN (>89) 67 ML/MIN (>89) Neutrophils (%) (Auto) 91.8 % (16.0-70.0) Lymphocytes (%) (Auto) 4.4 % (9.0-44.0) Monocytes (%) (Auto) 3.5 % (0.0-8.0) Eosinophils (%) (Auto) 0.1 % (0.0-4.0) Basophils (%) (Auto) 0.2 % (0.0-2.0) Neutrophils # (Auto) 15.6 TH/MM3 (1.8-7.7) Lymphocytes # (Auto) 0.8 TH/MM3 (1.0-4.8) Monocytes # (Auto) 0.6 TH/MM3 (0-0.9) Eosinophils # (Auto) 0.0 TH/MM3 (0-0.4) Basophils # (Auto) 0.0 TH/MM3 (0-0.2) Magnesium Level 1.8 MG/DL (1.5-2.5) Result Diagram: 11/04/17 0609 11/04/17 0609 Microbiology Microbiology Date/Time Source Procedure Growth Status 11/01/17 16:12 Blood Peripheral Aerobic Blood Culture - Final Escherichia Coli Complete 11/01/17 16:12 Anaerobic Blood Culture - Final Escherichia Coli Complete 11/01/17 16:07 Blood Peripheral Aerobic Blood Culture - Final Escherichia Coli Complete 11/01/17 16:07 Anaerobic Blood Culture - Final Escherichia Coli Complete 11/01/17 16:12 Urine Catheterized Urine Urine Culture - Final Escherichia Coli Complete Imaging Last Impressions Head CT 11/01/17 5641 Signed Impressions: Service Date/Time: Wednesday, November 01, 2017 17:02 - CONCLUSION: 1. Diffuse cerebral atrophy. 2. Mild periventricular and subcortical white matter small vessel ischemic changes bilaterally. 3. No acute infarct, acute hemorrhage, mass effect or extra-axial fluid collections. Carlos Almonte MD Chest X-Ray 11/01/17 1518 Signed Impressions: Service Date/Time: Wednesday, November 01, 2017 15:32 - CONCLUSION: Moderate cardiac silhouette enlargement. No other acute cardiopulmonary disease identified. Romulo Beal MD Patient/Family Conference Present at Family Conference: Spoke with sonSergio via telephone. Family Conference Time (mins): 30 Family Conference Location: Telephone Issues Discussed: * Palliative care role, purpose, approach * Additional medical, psychosocial, and spiritual history * Patients general health, functional status, and cognitive changes in the months leading up to the current hospitalization * Patient/family understanding of the current medical problems * Patient/family understanding of prognosis * Patients goals of care as best understood from advance directives and/or conversations and/or values * Current medical treatment options and benefits/burdens of those options * Likely scenarios comparing ongoing aggressive care with a transition to comfort measures only * Questions answered to the best of my ability * Palliative care contact information provided Goals remain aggressive short of no CODE at this time. Open to hospice in the future should her condition worsen. Assessment and Plan Disease Oriented Problem List: (1) Atrial fibrillation with RVR (2) JAK (acute kidney injury) (3) Hypothyroid (4) HTN (hypertension) (5) Altered mental status (6) UTI (urinary tract infection) (7) Sepsis (8) Dehydration Symptom Scale: (1) Decreased appetite 0-10 Scale: Unable to quantify (2) Weakness 0-10 Scale: Unable to quantify (3) Altered mental status 0-10 Scale: Unable to quantify Pertinent Non-Medical Issues Psychosocial: . Has 3 sons that live out of state. Has 1 sister who lives local. Spiritual:Yarsanism is not an important part of her life. Family declines cpr instructor support at this time. Legal: Has written advanced directives, living will, DPOA (does not include healthcare decisions) and [place] DNR. SonSergio indicates he believes he is the designated healthcare surrogate, is looking for documentation. According to [place] statutes, in the absence of written designation of healthcare surrogate, healthcare proxy decision making would fall to her 3 sons. Ethical issues impacting care: No known concerns at this time. . Important Contacts * Sergio Hightower son/reported HCS: [phone] or [phone] * Jad Hightower, son: [phone] * Beau Hightower, spouse: * Tonya Warren, sister: [phone] . Prognosis Ms. Hightower is a 77-year-old female with progressive dementia, admitted with UTI/ sepsis. Decreased appetite now on pured diet and thin liquids. Remains high risk for further decline, aspiration, repeat infection etc. Hospice appropriate if goals are comfort oriented. . Code Status: No Code Plan * Decision Maker: Patient is not capacitated to make her own healthcare decisions, will not regain capacity given underlying dementia. . 3 sons. Has written advanced directives, living will, DPOA (does not include healthcare decisions) and [place] DNR. SonSergio indicates he believes he is the designated healthcare surrogate, is looking for documentation. According to [place] statutes, in the absence of written designation of healthcare surrogate , healthcare proxy decision making would fall to her 3 sons. * NO CODE -[place] DNR on chart * Palliative care spoke with son, Sergio Bowser reported HCS via telephone. He is looking for documentation of designation of healthcare surrogate as power of state attorney paperwork does not include healthcare decisions. He indicates that patient indeed elected NO CODE as per written [place] DNR obtained from [facility]. Son is concerned that patient may not be able to return to [facility] if her baseline condition deteriorates further. Considering hospice services. Agreed for follow-up conversation on 11/05/17 for medical update. * SYMPTOMS: Pain: Denies pain. No obvious signs of pain. Weakness: Secondary to advanced age, infection, debility. Continue PT. decreased appetite: Secondary to increased confusion, underlying likely progressive dementia, infection. Swallow evaluation recommended pured diet and thin liquids. Does not appear family would want feeding tube based on patient written advanced directives. May consider transition to comfort. * Palliative care number provided. * Palliative care will continue to follow throughout hospital course to assist with symptom management and clarification of goals as needed. . Thank you for the opportunity to participate in the care of Ms. Hightower. Attestation To help prompt me to consider important information that might be impacting today's encounter and assessment, information from prior notes written by myself or my colleagues may have been "brought forward" into today's note. My signature on this note, however, is an attestation that I personally performed the exam, history, and/or decision-making noted today, and, unless otherwise indicated, the interactions with patient, family, and staff as well as the review of records all occurred today. I also attest that the listed assessment and stated plan reflect my best clinical judgment today based on the combination of historical information, prior notes, and today's exam/ interactions. When time spent is documented, it refers only to time spent today by the signer, or if indicated, combined time spent today by collaborating physician/nurse practitioner. Yessica Marino November 04, 2017 15:23
--- NOTE | 2017-11-04 17:41 | HHI.PR ---
Subjective Remarks No new complaints. Pt is tolerating PO intake. Per nursing, pt consume 50% of dinner. No n/v/d. Blood tinged urine draining from frausto. Objective Vitals Vital Signs Date Time Temp Pulse Resp B/P (MAP) Pulse Ox O2 Delivery O2 Flow Rate FiO2 11/04/17 16:00 98.6 90 18 133/84 (100) 97 11/04/17 16:00 90 11/04/17 15:00 92 11/04/17 14:00 100 11/04/17 13:00 98 11/04/17 12:00 95 11/04/17 12:00 98.1 90 16 143/44 (77) 97 11/04/17 11:00 96 11/04/17 10:00 90 11/04/17 09:00 84 11/04/17 08:00 98.3 101 16 145/80 (101) 97 11/04/17 08:00 88 11/04/17 07:30 Nasal Cannula 2.00 11/04/17 07:00 96 11/04/17 06:00 102 11/04/17 05:30 90 152/95 11/04/17 05:00 92 11/04/17 04:36 Nasal Cannula 2.00 11/04/17 04:00 89 11/04/17 03:30 98.2 89 16 152/95 (114) 98 11/04/17 03:00 83 11/04/17 02:00 90 11/04/17 01:00 83 11/04/17 00:00 92 11/04/17 00:00 97.6 92 16 139/94 (109) 97 11/03/17 23:00 84 11/03/17 22:00 90 11/03/17 21:00 100 11/03/17 20:00 98 Nasal Cannula 2.00 11/03/17 20:00 98.4 100 16 137/96 (110) 98 11/03/17 20:00 94 11/03/17 19:00 92 11/03/17 18:00 88 11/04/17 11/04/17 11/05/17 15:00 23:00 07:00 Intake Total 1410 ml Output Total 1000 ml Balance 410 ml Intake Oral 240 ml IV Total 1170 ml Output Urine Total 1000 ml # Bowel Movements 2 Result Diagram: 11/04/17 0609 11/04/17 0609 Imaging Last Impressions Head CT 11/01/17 1519 Signed Impressions: Service Date/Time: Wednesday, November 01, 2017 17:02 - CONCLUSION: 1. Diffuse cerebral atrophy. 2. Mild periventricular and subcortical white matter small vessel ischemic changes bilaterally. 3. No acute infarct, acute hemorrhage, mass effect or extra-axial fluid collections. Carlos Almonte MD Chest X-Ray 11/01/17 1518 Signed Impressions: Service Date/Time: Wednesday, November 01, 2017 15:32 - CONCLUSION: Moderate cardiac silhouette enlargement. No other acute cardiopulmonary disease identified. Romulo Beal MD Objective Remarks GENERAL: This is a well-nourished, well-developed patient, in no apparent distress. CARDIOVASCULAR: Regular rate and rhythm without murmurs, gallops, or rubs. RESPIRATORY: Clear to auscultation. Breath sounds equal bilaterally. No wheezes , rales, or rhonchi. GASTROINTESTINAL: Abdomen soft, non-tender, nondistended. Normal active bowel sounds MUSCULOSKELETAL: Extremities without clubbing, cyanosis, or edema. NEURO: Alert & Oriented x1, BARBA A/P Problem List: (1) Sepsis ICD Codes: A41.9 - Sepsis, unspecified organism Status: Acute Plan: - comgmt with Palliative Medicine - blood culture (10/31) 10/01 bottles E. Coli - IVF - zosyn - poor PO intake - PT/ST - DVT prophylaxis - supportive care - obtain repeat blood cultures - repeat CBC/BMP/Mag (2) UTI (urinary tract infection) ICD Codes: N39.0 - Urinary tract infection, site not specified Status: Acute Plan: - urine Cx (11/02) --> E. Coli - zosyn - blood tinged urine - obtain US of kidney, bladder, ureters (3) Atrial fibrillation with RVR ICD Codes: I48.91 - Unspecified atrial fibrillation Status: Chronic Plan: - pt resumed on PO metoprolol - HR controlled - stop IV amiodarone - prn IV metoprolol - observe on telemetry (4) JAK (acute kidney injury) ICD Codes: N17.9 - Acute kidney failure, unspecified Status: Acute Plan: - improved from admission - IVFs - repeat labs in AM (5) HTN (hypertension) ICD Codes: I10 - Essential (primary) hypertension Status: Chronic (6) Hypothyroid ICD Codes: E03.9 - Hypothyroidism, unspecified Status: Chronic Problem Qualifiers (1) UTI (urinary tract infection): Qualified Codes: N30.00 - Acute cystitis without hematuria (2) HTN (hypertension): Qualified Codes: I10 - Essential (primary) hypertension (3) Hypothyroid: Qualified Codes: E03.9 - Hypothyroidism, unspecified Sea Dwyer DO November 04, 2017 17:41
[2017-11-05] VITALS (27 sets, daily range): BP systolic 141–155; BP diastolic 88–98; PULSE 89–130; RESP 16–18; TEMP 97.5–99.4; O2SAT 94–98
[2017-11-05] MEDS: CHLORHEXIDINE GLUCONATE 2 % 1 PACK (2 CLOTHS)(taper/protocol) TOPICAL SCH (04:00)
[2017-11-05] MEDS: ENOXAPARIN SODIUM 80 MG/0.8 ML SYRINGE SQ SCH ×2 (04:15→18:10)
[2017-11-05] MEDS: LEVOTHYROXINE SODIUM 75 MCG TAB PO SCH (05:54)
[2017-11-05] MEDS: PIPERACIL-TAZO 3.375 GM PREMIX 50 ML IV SCH ×3 (05:54→22:07)
[2017-11-05 08:49] LABS: AUTOMATED NEUTROPHIL # 10.4 TH/MM3 (1.8-7.7); BASOPHIL % 0.4 % (0.0-2.0); EOSINOPHIL % 0.2 % (0.0-4.0); HEMATOCRIT 39.3 % (35.0-46.0); LYMPH % 8.2 % (9.0-44.0); MEAN CELL VOLUME 87.4 FL (80.0-100.0); MEAN CORPUSCULAR HGB CONC 33.2 % (32.0-36.0); MEAN PLATELET VOLUME 9.4 FL (7.0-11.0); MONO % 6.6 % (0.0-8.0); MONOCYTE # 0.8 TH/MM3 (0-0.9); NEUT % 84.6 % (16.0-70.0); PLATELET COUNT 146 TH/MM3 (150-450); WHITE BLOOD COUNT 12.3 TH/MM3 (4.0-11.0)
[2017-11-05] MEDS: METOPROLOL TARTRATE 25 MG TAB PO SCH ×2 (08:57→22:06)
[2017-11-05 09:27] LABS: CALCIUM 8.5 MG/DL (8.5-10.1); CREATININE 0.59 MG/DL (0.50-1.00); MAGNESIUM 1.6 MG/DL (1.5-2.5)
[2017-11-05] MEDS: SODIUM CHLOR 0.9% 1000 ML INJ 1,000 ML IV SCH ×2 (09:30→22:07)
[2017-11-05 09:37] LABS: ACANTHOCYTES OCC (NORMAL)
[2017-11-05 09:38] LABS: OVALOCYTES 2+ (NORMAL)
[2017-11-05 10:13] LABS: FREE T4 1.15 NG/DL (0.76-1.46)
--- NOTE | 2017-11-05 10:22 | RADRPT ---
EXAM DATE/TIME: 11/05/2017 09:18 [place] COMPARISON: No previous studies available for comparison. INDICATIONS : Hematuria. MEDICAL HISTORY : Hypertension. Gastroesophageal reflux disease. Thyroid disease. Hiatal hernia. Syncope. Osteoporosi s. SURGICAL HISTORY : Hysterectomy. Left hip. ENCOUNTER: Initial ACUITY: 2 days PAIN SCORE: 0/10 LOCATION: Bilateral flank MEASUREMENTS: RIGHT KIDNEY: 11.1 x 5.1 x 4.2 cm LEFT KIDNEY: 10.7 x 4.4 x 5.1 cm FINDINGS: RIGHT KIDNEY: Shadowing echogenic focus in the inferior pole of the right kidney likely reflecting a calyceal calcu celestine measuring 6 x 4 x 4 mm. Trace perinephric fluid. No hydronephrosis or focal mass. LEFT KIDNEY: Small exophytic simple appearing cyst in the superior pole measuring 1.6 x 1.4 x 1.5 cm. BLADDER: Decompressed and a Parker catheter. Small bilateral pleural effusions. CONCLUSION: 1. Small 6 mm nonobstructing calyceal calculus in the inferior pole of the right kidney. No obstructi ve uropathy. 2. Trace perinephric fluid. This is a nonspecific finding and may be seen in patients with positive f luid balance as well as other etiologies. 3. Simple appearing 1.6 cm exophytic superior pole left renal cyst. 4. Small bilateral pleural effusions. Zach Pichardo MD on November 05, 2017 at 10:16 Board Certified Radiologist. This report was verified electronically.
[2017-11-05] MEDS: POTASSIUM CHLORIDE 25 MEQ EFFERVESCENT TAB NG SCH ×2 (10:40→14:15)
--- NOTE | 2017-11-05 12:15 | HHI.HCPN ---
Reason for visit a. To assist with evaluation and management of symptoms including: Confusion , weakness, decreased appetite. b. To assist medical decision maker(s) with: better understanding of current medical conditions; weighing benefits/burdens of medical treatment options; making medical treatment decisions. . Subjective/Interval History Patient seen and examined in room. Nurses at bedside. Nurse reports she ate 75% of breakfast being fed. She is not drinking oral potassium. Patient is awake and confused. She is unable to answer questions. WBC trending down, now 12.3. Repeat blood cultures pending. Renal ultrasound with non obstructing renal stone and renal cyst. . Family/friend interactions Spoke with son, Sergio Bowser via phone. He indicates he found paperwork to support his designation of health care surrogate. Medical update provided including poor appetite and refusal of oral meds. Reviewed my conversation with Dr. Dwyer and recommendation for hospice and comfort measures. Son agrees patient would not want life prolonging measures or procedures. He desires hospice consult in hopes she can return to facility with hospice support. . Advance Directives Advance Directive Specifics Health Care Surrogate(s): DURABLE POWER OF DISEASE CASE MANAGER RN does not include healthcare decision making though nominates her son Sergio Bowser as primary POA, Akhil Ambrocio as first alternate and Jad Bowsre as second alternative. Family is searching for designation of healthcare surrogate paperwork that reportedly names the same decision making higher. . Documented care wishes: Living will dated 07/26/14 indicates that if her attending physician indicates she is in a persistent vegetative state or has an end-stage condition defined as an irreversible condition that caused injury, disease or illness which has resulted in progressively severe or permanent deterioration and that the medical probability of treatment would be ineffective that she would want life prolonging measures to be withheld or withdrawn and that she would be provided comfort care. Patient also completed a [facility] DO NOT RESUSCITATE order 11/16/14 indicating that she directs that CPR be withheld or withdrawn. . Significant change in goals: NO CODE. Goals remain aggressive short of NO CODE at this time. Family may consider hospice if condition worsens. . Objective Vital Signs Date Time Temp Pulse Resp B/P (MAP) Pulse Ox O2 Delivery O2 Flow Rate FiO2 11/05/17 07:44 97.5 96 16 151/98 (115) 96 11/05/17 07:44 96 Nasal Cannula 2.00 11/05/17 06:00 105 5/9/18 05:00 98 11/05/17 04:00 90 11/05/17 03:30 98.7 102 16 155/97 (116) 98 11/05/17 03:00 108 11/05/17 02:00 96 11/05/17 01:00 96 11/05/17 00:00 89 11/04/17 23:30 98.2 81 16 158/94 (115) 97 11/04/17 23:00 98 11/04/17 22:00 92 11/04/17 21:20 Nasal Cannula 2.00 11/04/17 21:00 98 11/04/17 20:00 88 11/04/17 20:00 99 Nasal Cannula 2.00 11/04/17 20:00 98.5 91 16 147/88 (107) 99 11/04/17 19:00 136 11/04/17 17:39 97 2.00 11/04/17 16:00 98.6 90 18 133/84 (100) 97 11/04/17 16:00 90 11/04/17 15:00 92 11/04/17 14:00 100 11/04/17 13:00 98 11/04/17 12:00 95 11/04/17 12:00 98.1 90 16 143/44 (77) 97 Intake & Output 11/05/17 11/05/17 07:00 19:00 Intake Total 360 ml Output Total 2750 ml Balance -2390 ml Intake Oral 360 ml Output Urine Total 2750 ml # Bowel Movements 1 Physical Exam CONSTITUTIONAL/GENERAL: This is an adequately nourished, confused patient, in no apparent distress. TUBES/LINES/DRAINS: Oxygen via nasal cannula, PIV left hand, PIV right forearm, Parker catheter. SKIN: No jaundice, rashes, or lesions. Ecchymoses on upper extremities. No wounds seen anteriorly. Skin temperature appropriate. Not diaphoretic. CARDIOVASCULAR: Irregularly irregular. No murmurs. RESPIRATORY/CHEST: Clear to auscultation. GASTROINTESTINAL: Abdomen soft, non-tender, nondistended. Bowel sounds present. GENITOURINARY: Without palpable bladder distension. Parker catheter in place. MUSCULOSKELETAL: Extremities without clubbing, cyanosis, or edema. No mottling or clubbing. NEUROLOGICAL: Awake and alert. Oriented to self only. PSYCHIATRIC: No obvious anxiety/depression. no apparent hallucinations or other psychotic thought process. . Diagnostic Tests Laboratory Laboratory Tests Test 11/02/17 14:30 11/03/17 08:40 11/04/17 06:09 11/05/17 08:35 Nasal Screen MRSA (PCR) MRSA NOT DETECTED (NOT White Blood Count 23.5 TH/MM3 (4.0-11.0) 17.0 TH/MM3 (4.0-11.0) 12.3 TH/MM3 (4.0-11.0) Red Blood Count 4.75 MIL/MM3 (4.00-5.30) 4.24 MIL/MM3 (4.00-5.30) 4.50 MIL/MM3 (4.00-5.30) Hemoglobin 13.9 GM/DL (11.6-15.3) 12.4 GM/DL (11.6-15.3) 13.0 GM/DL (11.6-15.3) Hematocrit 41.8 % (35.0-46.0) 37.2 % (35.0-46.0) 39.3 % (35.0-46.0) Mean Corpuscular Volume 88.1 FL (80.0-100.0) 87.7 FL (80.0-100.0) 87.4 FL (80.0-100.0) Mean Corpuscular Hemoglobin 29.2 PG (27.0-34.0) 29.2 PG (27.0-34.0) 29.0 PG (27.0-34.0) Mean Corpuscular Hemoglobin Concent 33.1 % (32.0-36.0) 33.2 % (32.0-36.0) 33.2 % (32.0-36.0) Red Cell Distribution Width 15.4 % (11.6-17.2) 15.0 % (11.6-17.2) 15.0 % (11.6-17.2) Platelet Count 127 TH/MM3 (150-450) 135 TH/MM3 (150-450) 146 TH/MM3 (150-450) Mean Platelet Volume 11.1 FL (7.0-11.0) 10.2 FL (7.0-11.0) 9.4 FL (7.0-11.0) CBC Comment AUTO DIFF DIFF FINAL AUTO DIFF Differential Total Cells Counted 100 Neutrophils % (Manual) 70 % (16-70) Band Neutrophils % 25 % (0-6) Lymphocytes % 4 % (9-44) Neutrophils # (Manual) 22.6 TH/MM3 (1.8-7.7) Metamyelocytes 1 % (0-1) Differential Comment FINAL DIFF MANUAL AUTO DIFF CONFIRMED Toxic Vacuolation PRESENT (NONE SEEN) Platelet Estimate LOW (NORMAL) LOW (NORMAL) Platelet Morphology Comment NORMAL (NORMAL) NORMAL (NORMAL) Blood Urea Nitrogen 20 MG/DL (7-18) 17 MG/DL (7-18) 9 MG/DL (7-18) Creatinine 0.95 MG/DL (0.50-1.00) 0.82 MG/DL (0.50-1.00) 0.59 MG/DL (0.50-1.00) Random Glucose 110 MG/DL (74-106) 98 MG/DL (74-106) 115 MG/DL (74-106) Calcium Level 8.0 MG/DL (8.5-10.1) 8.0 MG/DL (8.5-10.1) 8.5 MG/DL (8.5-10.1) Sodium Level 141 MEQ/L (136-145) 142 MEQ/L (136-145) 141 MEQ/L (136-145) Potassium Level 3.5 MEQ/L (3.5-5.1) 2.8 MEQ/L (3.5-5.1) 2.8 MEQ/L (3.5-5.1) Chloride Level 108 MEQ/L (98-107) 107 MEQ/L (98-107) 104 MEQ/L (98-107) Carbon Dioxide Level 21.7 MEQ/L (21.0-32.0) 24.8 MEQ/L (21.0-32.0) 26.0 MEQ/L (21.0-32.0) Anion Gap 11 MEQ/L (5-15) 10 MEQ/L (5-15) 11 MEQ/L (5-15) Estimat Glomerular Filtration Rate 57 ML/MIN (>89) 67 ML/MIN (>89) 98 ML/MIN (>89) Neutrophils (%) (Auto) 91.8 % (16.0-70.0) 84.6 % (16.0-70.0) Lymphocytes (%) (Auto) 4.4 % (9.0-44.0) 8.2 % (9.0-44.0) Monocytes (%) (Auto) 3.5 % (0.0-8.0) 6.6 % (0.0-8.0) Eosinophils (%) (Auto) 0.1 % (0.0-4.0) 0.2 % (0.0-4.0) Basophils (%) (Auto) 0.2 % (0.0-2.0) 0.4 % (0.0-2.0) Neutrophils # (Auto) 15.6 TH/MM3 (1.8-7.7) 10.4 TH/MM3 (1.8-7.7) Lymphocytes # (Auto) 0.8 TH/MM3 (1.0-4.8) 1.0 TH/MM3 (1.0-4.8) Monocytes # (Auto) 0.6 TH/MM3 (0-0.9) 0.8 TH/MM3 (0-0.9) Eosinophils # (Auto) 0.0 TH/MM3 (0-0.4) 0.0 TH/MM3 (0-0.4) Basophils # (Auto) 0.0 TH/MM3 (0-0.2) 0.0 TH/MM3 (0-0.2) Magnesium Level 1.8 MG/DL (1.5-2.5) 1.6 MG/DL (1.5-2.5) Ovalocytes 2+ (NORMAL) Acanthocytes OCC (NORMAL) Free Thyroxine 1.15 NG/DL (0.76-1.46) Thyroid Stimulating Hormone 3rd Gen 4.890 uIU/ML (0.358-3.740) Result Diagram: 11/05/1735 11/05/1735 Microbiology Microbiology Date/Time Source Procedure Growth Status 11/05/17 08:40 Blood Peripheral Aerobic Blood Culture Pending Received 11/05/17 08:40 Blood Peripheral Anaerobic Blood Culture Pending Received 11/05/17 08:35 Blood Peripheral Aerobic Blood Culture Pending Received 11/05/17 08:35 Blood Peripheral Anaerobic Blood Culture Pending Received Imaging Last Impressions Renal Ultrasound 11/05/17 0000 Signed Impressions: Service Date/Time: Sunday, November 05, 2017 09:18 - CONCLUSION: 1. Small 6 mm nonobstructing calyceal calculus in the inferior pole of the right kidney. No obstructive uropathy. 2. Trace perinephric fluid. This is a nonspecific finding and may be seen in patients with positive fluid balance as well as other etiologies. 3. Simple appearing 1.6 cm exophytic superior pole left renal cyst. 4. Small bilateral pleural effusions. Zach Pichardo MD Head CT 11/01/17 1519 Signed Impressions: Service Date/Time: Wednesday, November 01, 2017 17:02 - CONCLUSION: 1. Diffuse cerebral atrophy. 2. Mild periventricular and subcortical white matter small vessel ischemic changes bilaterally. 3. No acute infarct, acute hemorrhage, mass effect or extra-axial fluid collections. Carlos Almonte MD Chest X-Ray 11/01/17 1512 Signed Impressions: Service Date/Time: Wednesday, November 01, 2017 15:32 - CONCLUSION: Moderate cardiac silhouette enlargement. No other acute cardiopulmonary disease identified. Romulo Beal MD Assessment and Plan Disease Oriented Problem List: (1) Atrial fibrillation with RVR (2) JAK (acute kidney injury) (3) Hypothyroid (4) HTN (hypertension) (5) Altered mental status (6) UTI (urinary tract infection) (7) Sepsis (8) Dehydration Symptom Scale: (1) Decreased appetite 0-10 Scale: Unable to quantify (2) Weakness 0-10 Scale: Unable to quantify (3) Altered mental status 0-10 Scale: Unable to quantify Pertinent Non-Medical Issues Psychosocial: . Has 3 sons that live out of state. Has 1 sister who lives local. Spiritual:[employer] is not an important part of her life. Family declines engine generator assembler support at this time. Legal: Has written advanced directives, living will, DPOA (does not include healthcare decisions) and [place] DNR. Son, Sergio Bowser indicates he believes he is the designated healthcare surrogate, is looking for documentation. According to [place] statutes, in the absence of written designation of healthcare surrogate, healthcare proxy decision making would fall to her 3 sons. Ethical issues impacting care: No known concerns at this time. . Important Contacts * Segrio Hightower, son/ [facility]: [phone] or [phone] * Jad Hightower, son: [phone] * Beau Hightower, spouse: * Tonya Warren, sister: [phone] . Prognosis Ms. Hightower is a 77-year-old female with progressive dementia, admitted with UTI/ sepsis. Decreased appetite now on pured diet and thin liquids. Remains high risk for further decline, aspiration, repeat infection etc. Hospice appropriate if goals are comfort oriented. . Code Status: No Code Plan * Decision Maker: Patient is not capacitated to make her own healthcare decisions, will not regain capacity given underlying dementia. . 3 sons. Has written advanced directives, living will, DPOA (does not include healthcare decisions) and [place] DNR. Son, Sergio Bowser indicates he found paperwork to support he is the designated healthcare surrogate. * NO CODE - [place] DNR on chart, scanned into EMR. * 11/05/17 - Spoke with sonSergio via phone. He indicates he found paperwork to support his designation of health care surrogate. Medical update provided including poor appetite and refusal of oral meds. Reviewed my conversation with Dr. Dwyer and recommendation for hospice and comfort measures. Son agrees patient would not want life prolonging measures or procedures. He desires hospice consult in hopes she can return to facility ( [facility]) with hospice support. Will need assistance in options if unable to go back to [facility]. * Discussed with Dr. Dwyer. * SYMPTOMS: Pain: Denies pain. No obvious signs of pain. Weakness: Secondary to advanced age, infection, debility. Continue PT. decreased appetite: Secondary to increased confusion, underlying likely progressive dementia, infection. Swallow evaluation recommended pured diet and thin liquids. Eating small amounts when fed. Refusing oral meds. * Palliative care will continue to follow throughout hospital course to assist with symptom management and clarification of goals as needed. . Attestation To help prompt me to consider important information that might be impacting today's encounter and assessment, information from prior notes written by myself or my colleagues may have been "brought forward" into today's note. My signature on this note, however, is an attestation that I personally performed the exam, history, and/or decision-making noted today, and, unless otherwise indicated, the interactions with patient, family, and staff as well as the review of records all occurred today. I also attest that the listed assessment and stated plan reflect my best clinical judgment today based on the combination of historical information, prior notes, and today's exam/ interactions. When time spent is documented, it refers only to time spent today by the signer, or if indicated, combined time spent today by collaborating physician/nurse practitioner. Yessica Mairno November 05, 2017 12:15
[2017-11-05] MEDS ORDERED: POTASSIUM CHLORIDE 10 MEQ CONTROLLED RELEASE TAB PO ONE (14:00)
--- NOTE | 2017-11-05 14:34 | HHI.PR ---
Subjective Remarks Pt NOT eating today. Objective Vitals Vital Signs Date Time Temp Pulse Resp B/P (MAP) Pulse Ox O2 Delivery O2 Flow Rate FiO2 11/05/17 07:44 97.5 96 16 151/98 (115) 96 11/05/17 07:44 96 Nasal Cannula 2.00 11/05/17 06:00 105 11/05/17 05:00 98 11/05/17 04:00 90 11/05/17 03:30 98.7 102 16 155/97 (116) 98 11/05/17 03:00 108 11/05/17 02:00 96 11/05/17 01:00 96 11/05/17 00:00 89 11/04/17 23:30 98.2 81 16 158/94 (115) 97 11/04/17 23:00 98 11/04/17 22:00 92 11/04/17 21:20 Nasal Cannula 2.00 11/04/17 21:00 98 11/04/17 20:00 88 11/04/17 20:00 99 Nasal Cannula 2.00 11/04/17 20:00 98.5 91 16 147/88 (107) 99 11/04/17 19:00 136 11/04/17 17:39 97 2.00 11/04/17 16:00 98.6 90 18 133/84 (100) 97 11/04/17 16:00 90 11/04/17 15:00 92 Result Diagram: 11/05/17 0835 11/05/17 0835 Imaging Last Impressions Renal Ultrasound 11/05/17 0000 Signed Impressions: Service Date/Time: Sunday, November 05, 2017 09:18 - CONCLUSION: 1. Small 6 mm nonobstructing calyceal calculus in the inferior pole of the right kidney. No obstructive uropathy. 2. Trace perinephric fluid. This is a nonspecific finding and may be seen in patients with positive fluid balance as well as other etiologies. 3. Simple appearing 1.6 cm exophytic superior pole left renal cyst. 4. Small bilateral pleural effusions. Zach Pichardo MD Head CT 11/01/17 1519 Signed Impressions: Service Date/Time: Wednesday, November 01, 2017 17:02 - CONCLUSION: 1. Diffuse cerebral atrophy. 2. Mild periventricular and subcortical white matter small vessel ischemic changes bilaterally. 3. No acute infarct, acute hemorrhage, mass effect or extra-axial fluid collections. Carlos Almonte MD Chest X-Ray 11/01/17 1518 Signed Impressions: Service Date/Time: Wednesday, November 01, 2017 15:32 - CONCLUSION: Moderate cardiac silhouette enlargement. No other acute cardiopulmonary disease identified. Romulo Beal MD Objective Remarks GENERAL: This is a well-nourished, well-developed patient, in no apparent distress. CARDIOVASCULAR: Regular rate and rhythm without murmurs, gallops, or rubs. RESPIRATORY: Clear to auscultation. Breath sounds equal bilaterally. No wheezes , rales, or rhonchi. GASTROINTESTINAL: Abdomen soft, non-tender, nondistended. Normal active bowel sounds MUSCULOSKELETAL: Extremities without clubbing, cyanosis, or edema. NEURO: Alert & Oriented x1. Moves all ext x4 A/P Problem List: (1) Sepsis ICD Codes: A41.9 - Sepsis, unspecified organism Status: Acute Plan: - comgmt with Palliative Medicine - blood culture (10/31) 10/01 bottles E. Coli - IVF - zosyn - poor PO intake - PT/ST - DVT prophylaxis - supportive care - Repeat blood Cx (11/04/17) --> pending - Pt in decline. Pt refusing oral intake. Pt refusing PO medications. - Hospice would be appropriate. - Case d/w Uma Marino [employer] CUTTING SUPERVISOR with Palliative Medicine. She will discuss further with pt's family. (2) UTI (urinary tract infection) ICD Codes: N39.0 - Urinary tract infection, site not specified Status: Acute Plan: - urine Cx (11/02) --> E. Coli - zosyn - blood tinged urine - obtain US of kidney, bladder, ureters --> small non-obstructing stone at inferior pole of right kidney (3) Atrial fibrillation with RVR ICD Codes: I48.91 - Unspecified atrial fibrillation Status: Chronic Plan: - pt resumed on PO metoprolol - HR controlled - stop IV amiodarone - prn IV metoprolol - observe on telemetry (4) JAK (acute kidney injury) ICD Codes: N17.9 - Acute kidney failure, unspecified Status: Acute Plan: - improved from admission - IVFs - repeat labs in AM (5) HTN (hypertension) ICD Codes: I10 - Essential (primary) hypertension Status: Chronic (6) Hypothyroid ICD Codes: E03.9 - Hypothyroidism, unspecified Status: Chronic (7) Hypokalemia ICD Codes: E87.6 - Hypokalemia Status: Acute Plan: - pt in obvious deline - pt refusing PO Potassium supplementation - IV KCL would be futile - see above. Problem Qualifiers (1) UTI (urinary tract infection): Qualified Codes: N30.00 - Acute cystitis without hematuria (2) HTN (hypertension): Qualified Codes: I10 - Essential (primary) hypertension (3) Hypothyroid: Qualified Codes: E03.9 - Hypothyroidism, unspecified Sea Dwyer DO November 05, 2017 14:34
[2017-11-06] VITALS (19 sets, daily range): BP systolic 140–155; BP diastolic 90–98; PULSE 84–111; RESP 16–18; TEMP 97–99; O2SAT 93–95
[2017-11-06] MEDS: CHLORHEXIDINE GLUCONATE 2 % 1 PACK (2 CLOTHS)(taper/protocol) TOPICAL SCH (04:00)
[2017-11-06] MEDS: ENOXAPARIN SODIUM 80 MG/0.8 ML SYRINGE SQ SCH ×2 (04:57→17:13)
[2017-11-06] MEDS: LEVOTHYROXINE SODIUM 75 MCG TAB PO SCH (05:00)
[2017-11-06] MEDS: PIPERACIL-TAZO 3.375 GM PREMIX 50 ML IV SCH ×2 (05:00→17:13)
[2017-11-06] MEDS: METOPROLOL TARTRATE 25 MG TAB PO SCH (09:48)
--- NOTE | 2017-11-06 13:00 | HHI.DS ---
Discharge Summary Admission Date November 01, 2017 at 17:49 Discharge Date: November 06, 2017 Admitting Diagnosis Sepsis/UTI/altered mental status (1) Sepsis ICD Codes: A41.9 - Sepsis, unspecified organism Status: Acute (2) UTI (urinary tract infection) ICD Codes: N39.0 - Urinary tract infection, site not specified Status: Acute (3) Atrial fibrillation with RVR ICD Codes: I48.91 - Unspecified atrial fibrillation Status: Chronic (4) JAK (acute kidney injury) ICD Codes: N17.9 - Acute kidney failure, unspecified Status: Acute (5) HTN (hypertension) ICD Codes: I10 - Essential (primary) hypertension Status: Chronic (6) Hypothyroid ICD Codes: E03.9 - Hypothyroidism, unspecified Status: Chronic (7) Hypokalemia ICD Codes: E87.6 - Hypokalemia Status: Acute Consultants Dr. Schultz, Palliative care Hospice Procedures none Brief History Pt is a 77 yo with htn, reported mild dementia, from a local skilled nursing for foul smelling urine and more confusion. EMS reported to the staff that she is usually more oriented and active. On arrival our staff noted afib/rvr, alot of old stool near hear vaginal canal and very poor hygiene. she appeared very dry. She was confused and just mumbling . EMS gave iv cardizem per report. ABX in form of zosyn and ivf have been initiated. Parker placed and dark brown urine with clumps are noted. She is unable to give further hx. CBC/BMP: 11/05/17 0835 11/05/17 0835 Significant Findings Laboratory Tests Test 11/04/17 06:09 11/05/17 08:35 White Blood Count 17.0 TH/MM3 (4.0-11.0) 12.3 TH/MM3 (4.0-11.0) Platelet Count 135 TH/MM3 (150-450) 146 TH/MM3 (150-450) Neutrophils (%) (Auto) 91.8 % (16.0-70.0) 84.6 % (16.0-70.0) Lymphocytes (%) (Auto) 4.4 % (9.0-44.0) 8.2 % (9.0-44.0) Neutrophils # (Auto) 15.6 TH/MM3 (1.8-7.7) 10.4 TH/MM3 (1.8-7.7) Lymphocytes # (Auto) 0.8 TH/MM3 (1.0-4.8) Calcium Level 8.0 MG/DL (8.5-10.1) Potassium Level 2.8 MEQ/L (3.5-5.1) 2.8 MEQ/L (3.5-5.1) Estimat Glomerular Filtration Rate 67 ML/MIN (>89) Platelet Estimate LOW (NORMAL) Ovalocytes 2+ (NORMAL) Acanthocytes OCC (NORMAL) Random Glucose 115 MG/DL (74-106) Thyroid Stimulating Hormone 3rd Gen 4.890 uIU/ML (0.358-3.740) Imaging Last Impressions Renal Ultrasound 11/05/17 0000 Signed Impressions: Service Date/Time: Sunday, November 05, 2017 09:18 - CONCLUSION: 1. Small 6 mm nonobstructing calyceal calculus in the inferior pole of the right kidney. No obstructive uropathy. 2. Trace perinephric fluid. This is a nonspecific finding and may be seen in patients with positive fluid balance as well as other etiologies. 3. Simple appearing 1.6 cm exophytic superior pole left renal cyst. 4. Small bilateral pleural effusions. Zach Pichardo MD Head CT 11/01/17 1519 Signed Impressions: Service Date/Time: Wednesday, November 01, 2017 17:02 - CONCLUSION: 1. Diffuse cerebral atrophy. 2. Mild periventricular and subcortical white matter small vessel ischemic changes bilaterally. 3. No acute infarct, acute hemorrhage, mass effect or extra-axial fluid collections. Carlos Almonte MD Chest X-Ray 11/01/17 1514 Signed Impressions: Service Date/Time: Wednesday, November 01, 2017 15:32 - CONCLUSION: Moderate cardiac silhouette enlargement. No other acute cardiopulmonary disease identified. Romulo Beal MD PE at Discharge GENERAL: This is a well-nourished, well-developed patient, in no apparent distress. CARDIOVASCULAR: Regular rate and rhythm without murmurs, gallops, or rubs. RESPIRATORY: Clear to auscultation. Breath sounds equal bilaterally. No wheezes , rales, or rhonchi. GASTROINTESTINAL: Abdomen soft, non-tender, nondistended. Normal active bowel sounds MUSCULOSKELETAL: Extremities without clubbing, cyanosis, or edema. NEURO: Alert & Oriented x1. Moves all ext x4 Hospital Course Sepsis - comgmt with Palliative Medicine - blood culture (10/31) / bottles E. Coli - IVF - zosyn - poor PO intake - PT/ST - DVT prophylaxis - supportive care - Repeat blood Cx (11/04/17) --> pending - Pt in decline. Pt refusing oral intake. Pt refusing PO medications. - Hospice would be appropriate. - Case d/w Uma Marino ARTHUR with Palliative Medicine. UTI (urinary tract infection) - urine Cx (11/02) --> E. Coli - zosyn - blood tinged urine - obtain US of kidney, bladder, ureters --> small non-obstructing stone at inferior pole of right kidney Atrial fibrillation with RVR - pt resumed on PO metoprolol - HR controlled - stop IV amiodarone - prn IV metoprolol - observe on telemetry JAK (acute kidney injury) - improved from admission - IVFs - repeat labs in AM HTN (hypertension) Chronic Hypothyroid Chronic Hypokalemia - pt in obvious deline - pt refusing PO Potassium supplementation - IV KCL would be futile - see above. Patient's family met with hospice and requesting comfort measures only with DC to hospice care center Pt Condition on Discharge: Deteriorating Discharge Disposition: Hospice/Med Facility Discharge Instructions DIET: Follow Instructions for: As Tolerated, No Restrictions Activities you can perform: Continue Bedrest Edita Marquez November 06, 2017 13:00
[2017-11-06] MEDS: SODIUM CHLOR 0.9% 1000 ML INJ 1,000 ML IV SCH (17:13)
== END 2017-11-06 17:40 | disposition hospice, inpatient (51) | DRG 872 ==
LOC: NEPC 15:03 → NEDA 17:49 → N04A 21:22 → HIMN 11-02 13:35 → HCIS 11-03 18:19
PROVIDERS: ADMIT Hospitalist; ATTEND Hospitalist
DX: A41.9 Sepsis, unspecified organism (principal); N39.0 Urinary tract infection, site not specified; N17.9 Acute kidney failure, unspecified; I48.91 Unspecified atrial fibrillation; N28.1 Cyst of kidney, acquired; E86.0 Dehydration; I10 Essential (primary) hypertension; F03.90 Unspecified dementia, unspecified severity, without behavioral disturbance, psychotic disturbance, mood disturbance, and anxiety; E03.9 Hypothyroidism, unspecified; R63.0 Anorexia; N20.0 Calculus of kidney; B96.20 Unspecified Escherichia coli [E. coli] as the cause of diseases classified elsewhere; E07.9 Disorder of thyroid, unspecified; M81.0 Age-related osteoporosis without current pathological fracture; K21.9 Gastro-esophageal reflux disease without esophagitis; Z51.5 Encounter for palliative care; Z66 Do not resuscitate; E87.6 Hypokalemia
CPT/HCPCS: 70450; 71045; 76775; 76937; 80048; 80053; 81001; 82550; 82552; 83605; 83735; 84439; 84443; 84484; 85007; 85025; 85027; 87040; 87077; 87086; 87186; 87205; 87641; 93005; 96365; J0282; J0696; J1160; J1650; J2543; J3475; J7030; J7050